=== PATIENT | male | born 1985 | race Caucasian/White ===

== ENCOUNTER 2017-01-26 18:18 | Inpatient (IN) | payer MEDICAID ==
[~2017-01-26] VITALS: Ht 182.9 cm; Wt 61.5 kg
[2017-01-26 18:25] VITALS: BP 118/81; PULSE 107; RESP 16; O2SAT 99
[2017-01-26 19:24] LABS: BASOPHILS % (AUTO) 0.1 % (0-3); EOSINOPHILS % (AUTO) 0.4 % (0-5); MONOCYTES % (AUTO) 5.8 % (4-12); Mean Corpuscular Hemoglobin 27.4 pg (27.0-35.0); Mean Corpuscular Volume 81.9 fL (81-100); NEUTROPHILS % (AUTO) 85.3 % (40-74); Platelet Count 472 bil/L (150-400)
--- NOTE | 2017-01-26 20:36 | ED.REPORT ---
HPI-General Illness Date of Service Jan 26, 2017 ED Provider: Dr. Rhys Tubbs MD A 31 year old male with a history of diabetes mellitus (previous DKA admission x5) presents to the ED complaining of hematuria that began 4 days ago. Patient was seen by Dr. Staton this afternoon and CT revealed L. pyelonephritis and a complex perinephric collection consistent with a large abscess. The patient's hematuria has been constant since initial onset. Recent associated symptoms include diffuse abdominal pain and left flank pain. He last ate at 0900 this morning. Nursing Notes Stated Complaint: CT RESULTS/KIDNEY ABCESS/SENT FROM DR STATON Chief Complaint: Male Abdominal Pain Nursing Notes Reviewed: Yes Allergies: Coded Allergies: codeine (Verified Allergy, Severe, 01/26/17) Penicillins (Verified Allergy, Mild, THROAT EDEMA, 01/26/17) Scheduled Insulin Glargine (Lantus U100 Insulin Vial) 100 Unit/Ml Vial 38 UNIT SUBQ HS Sertraline HCl (Zoloft) 50 Mg Tablet 75 MG PO DAILY Scheduled PRN Acetaminophen (Acetaminophen) 325 Mg Tablet 500 MG PO Q4H PRN PRN For Fever Calcium Carbonate (Tums) 500 Mg Tab.chew 500-1,000 MG PO PRN PRN PRN heartburn Miscellaneous Medications Insulin Lispro (HumaLOG U100 Insulin Pen) 100 Unit/1 Ml Insuln.pen 1 UNIT SUBQ General Time Seen by MD: 20:36 Chief Complaint Abdominal pain Hx Obtained From: Patient Arrived By: Walk-in Sudden in Onset?: No Onset Occurred: 4 days ago Symptom Duration: Since onset Location: : Abdomen Quality: Painful Radiation: : Does not radiate Severity: Current: Moderate Severity: Maximum: Moderate Associated with: Reports: Abdominal pain Additional Notes: Hematuria Flank pain Pertinent Negative: Pt denies other symptoms Recent Healthcare: No recent hospitalization, Recent doctor visit Past Medical History Past Medical History 1. Diabetes mellitus type II (previous DKA admissions x5) 2. Cleft lip and palate surgery (x3) 3. Dental malocclusion 4. Bilateral laryngotomy for chronic ear infections 5. Developmental delay Past Surgical History Palate surgery (x3) Bilateral laryngotomy for chronic ear infections Social History Other Social History: Good social support, Local resident Ambulatory Status Independent Review of Systems Full Review of Systems GI: Reports: Abdominal pain Male: Reports Flank pain (Left), Reports Hematuria Complete sys rev & neg: except as marked. Physical Exam Vital Signs Vital Signs Date Time Temp Pulse Resp B/P Pulse Ox O2 Delivery O2 Flow Rate FiO2 01/26/17 18:25 37.2 107 16 118/81 99 Room Air Initial VS: Reviewed Neck: Supple, Non-tender, Full range of motion Extremities: Vascular intact, Neuro intact, No swelling, No tenderness Skin: Warm, Dry, No cyanosis Neurologic: Alert, Oriented, Nonfocal Psychiatric: Mood/affect normal, Behavior normal, Normal thought content General/Constitutional: Awake, Alert Appearance / Presentation: Positive: Frail, Pale Head / Eyes: Atraumatic, Normocephalic, PERRL Respiratory / Chest: Atraumatic, Breath sounds NL, Breath sounds = bilat, No respiratory distress Cardiovascular: Heart rate NL, Regular rhythm, Heart sounds NL Abdomen: Atraumatic, Soft Back: Atraumatic Flank / Spine / Paraspinal: Positive: Flank tender L BACK: CVA tenderness present Interpretation & Diagnostics Lab Results Interpretation Result Diagram: 01/27/17 0350 01/27/17 0350 Test 01/26/17 19:17 Lactic Acid Level 1.0mmol/L (0.4-2.0) Total Bilirubin 0.2mg/dL (0.0-1.2) Aspartate Amino Transf (AST/SGOT) 6U/L (0-50) Alanine Aminotransferase (ALT/SGPT) 5U/L (0-44) Alkaline Phosphatase 100U/L (25-150) Total Protein 7.7g/dL (6.4-8.4) Albumin 3.3g/dL (3.4-5.0) Hold Walls Top Tube Received (Received) CT Abd / Pelvis Interpretation IMPRESSION: 1. Left pyelonephritis and a complex perinephric collection consistent with perinephric abscess measuring 2.4 x 5.8 x 4.2 cm. 2. Mild concentric thickening of the urinary bladder consistent with cystitis. Dictated by: Gurpreet De La Garza M.D. on 01/26/2017 at 12:32 Approved by: Gurpreet De La Garza M.D. on 01/26/2017 at 12:56 ADDENDUM: The doctor's office had received the result. Dictated by: Gurpreet De La Garza M.D. on 01/26/2017 at 15:55 Study type: Abdominal CT IV contrast, Abdom CT oral contrast Interpretation / Wet Read by: Interpret - Radiologist Re-Eval/Medical Decision Med Decision/Clinical Course Will initiate broad-spectrum antibiotic coverage with cefepime and vancomycin. A staph aureus abscess seems unlikely but I suppose enterococcus could contribute. We will narrow the spectrum when blood and urine cultures are available. Perhaps her urine cultures at [facility]. Either way surgical intervention and most likely interventional radiology will need to be involved as well. Fluid resuscitation and ongoing diabetic treatment. Time of Eval: 21:27 Re-Evaluation/Progress Note: Pain is still present. He is informed of the plan to admit. Pt understands and agrees with the treatment plan dto admit. Consultation #1: Referral / Consult Name: Tamica Garrett MD Consulted With: Urology Call Returned at: 20:56 Harp Action Assembler: Will see patient, Agrees with eval, Agrees with plan Note: Will see the patient tomorrow. Consultation #2: Referral / Consult Name: Ericka Serrano DO Consulted With: Hospitalist Call Returned at: 21:20 Harp Action Assembler: Will see patient, Agrees with eval, Agrees with plan, Accepts admit Counseled Regarding: Diagnosis, Lab results, Need for admission Discharge & Departure Primary Impression: Perinephric abscess Additional Impressions: Leukocytosis Leukocytosis type: unspecified Qualified Code: D72.829 - Elevated white blood cell count, unspecified Hyperglycemia Pyelonephritis Disposition: ADMITTED TO HOSPITAL Discharge Condition All VS Reviewed: Yes Condition: Stable Referrals: Cullen Britt DO (PCP) Leif Castañeda MD (Family) Natalia Attestation Portions of this note were transcribed by Katia Rubio. I, Dr. Tubbs personally performed the history, physical exam and medical decision-making; I reviewed and confirmed the accuracy of the information in the transcribed note. Signed by: Natalia Jiménez, 01/26/17 6194. copies to: Leif Castañeda MD; Cullen Britt Todd P DO Jan 26, 2017 20:36 KATIA RUBIO Jan 26, 2017 20:43 Dictated by: Gurpreet De La Garza M.D. on 01/26/2017 at 12:32 Approved by: Gurpreet De La Garza M.D. on 01/26/2017 at 12:56 ADDENDUM: The doctor's office had received the result. Dictated by: Gurpreet De La Garza M.D. on 01/26/2017 at 15:55 Study type: Abdominal CT IV contrast, Abdom CT oral contrast Interpretation / Wet Read by: Interpret - Radiologist Re-Eval/Medical Decision Time of Eval: 21:27 Re-Evaluation/Progress Note: Pain is still present. He is informed of the plan to admit. Pt understands and agrees with the treatment plan dto admit. Consultation #1: Referral / Consult Name: Tamica Garrett MD Consulted With: Urology Call Returned at: 20:56 Harp Action Assembler: Will see patient, Agrees with eval, Agrees with plan Note: Will see the patient tomorrow. Consultation #2: Referral / Consult Name: Ericka Serrano DO Consulted With: Hospitalist Call Returned at: 21:20 Harp Action Assembler: Will see patient, Agrees with eval, Agrees with plan, Accepts admit Counseled Regarding: Diagnosis, Lab results, Need for admission Discharge & Departure Primary Impression: Perinephric abscess Additional Impressions: Leukocytosis Leukocytosis type: unspecified Qualified Code: D72.829 - Elevated white blood cell count, unspecified Hyperglycemia Pyelonephritis Disposition: ADMITTED TO HOSPITAL Discharge Condition All VS Reviewed: Yes Condition: Stable Referrals: Cullen Britt DO (PCP) Leif Castañeda MD (Family) Natalia Attestation Portions of this note were transcribed by Katia Rubio. I, Dr. Tubbs personally performed the history, physical exam and medical decision-making; I reviewed and confirmed the accuracy of the information in the transcribed note. Signed by: Natalia Jiménez, 01/26/17 2224. copies to: Leif Castañeda MD; Cullen Britt Todd P DO Jan 26, 2017 20:36 KATIA RUBIO Jan 26, 2017 20:43
[2017-01-26] MEDS ORDERED: Vancomycin Inj 1,250 MG in 0.9% Sodium Chloride 250 ML IV ONE (20:40)
[2017-01-26] MEDS ORDERED: Cefepime Inj 2,000 MG in Dextrose 5% Minibag Plus 100 ML IV ONE (20:40)
[2017-01-26] MEDS ORDERED: 0.9% Sodium Chloride 1,000 ML IV ONE ×2 (20:40)
[2017-01-26] MEDS ORDERED: fentaNYL-PF 50 mCg/mL 2 mL Inj IVPUSH PRN (21:05)
[2017-01-26] MEDS ORDERED: 0.9% Sodium Chloride 1,000 ML IV SCH (22:56)
[2017-01-26] MEDS ORDERED: Ondansetron 2 mg/mL 2 mL Inj IVPUSH PRN (23:00)
[2017-01-26] MEDS ORDERED: Vancomycin Inj 750 MG in IV Premix 1 EACH IV ONE (23:00)
[2017-01-26] MEDS ORDERED: Alum-Mag Hydrox-Simeth 30 mL Suspension PO PRN (23:00)
[2017-01-26] MEDS: HYDROmorphone 0.5 mg/0.5 mL iSecure Syringe IVPUSH PRN (23:03)
[2017-01-26 23:14] VITALS: BP 122/78; PULSE 88; RESP 18; O2SAT 99
[2017-01-26 23:29] VITALS: BP 120/64; PULSE 88; RESP 16; O2SAT 98
[2017-01-26 23:34] VITALS: PULSE 106
[2017-01-26 23:37] VITALS: BP 142/90; PULSE 106; RESP 17; O2SAT 99
[2017-01-27] VITALS (7 sets, daily range): BP systolic 120–150; BP diastolic 76–104; PULSE 102–106; RESP 15–21; O2SAT 96–98
[2017-01-27 00:04] LABS: APPEARANCE,URINE CLEAR (CLEAR,HAZY); COLOR,URINE YELLOW (YELLOW); OCCULT BLOOD,URINE LARGE (NEGATIVE); PH,URINE 5.5 (5.0-8.0); UROBILINOGEN,URINE NORMAL (NORMAL)
[2017-01-27] MEDS ORDERED: CALC500T9 PO (00:16)
[2017-01-27] MEDS ORDERED: INSU100V7 SUBQ (00:16)
[2017-01-27] MEDS ORDERED: SERT50TA PO (00:16)
[2017-01-27] MEDS ORDERED: ACET325T51 PO (00:16)
[2017-01-27] MEDS ORDERED: INSU100I18 SUBQ (00:16)
--- NOTE | 2017-01-27 00:16 | PCM.HPMED ---
Subjective Date of Service Jan 27, 2017 Primary Provider: Admitting Physician: Ericka Serrano DO Primary Care Physician: Cullen Britt DO Attending Physician: Ericka Serrano DO Admit Status: From the Emergency Department Chief Complaint: abdominal pain History of Present Illness: 31yoM with past medical history of tobacco dependence, depression and diabetes admitted with sepsis secondary to a perinephric abscess. Patient states that he found blood in his urine 6 days prior to admission. He went to a friend's house and she looked at his urine and advised to go the ED. CT scan was performed and as per patient is was not consisted with pyelonephritis or nephrolithiasis. He was discharge and advised to be seen in follow up at the urology clinic. 01/26 he was seen in followup and was found to have a perinephric abscess on CT. Patient endorses left sided 10/10 flank pain radiating to the left abdomen. He endorses dyspnea related to painful inspiration and has not been able to sleep over the past 4 days due to the intense pain. Patient has not history of pyelonephritis or nephrolithiasis. Review of Systems: complete review of systems obtained. 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 Bilateral laryngotomy for chronic ear infections Developmental delay Social History Hx Alcohol Use: No (very rare ) Hx Substance Use: Yes (rec smoke) Hx Tobacco Use: Yes Exam Vital Signs Vital Sign - Last Date Time Temp Pulse Resp B/P Pulse Ox O2 Delivery O2 Flow Rate FiO2 01/26/17 23:37 37.2 106 17 142/90 99 Room Air Intake and Output 01/26/17 01/26/17 01/27/17 Cumulative From/Thru 14:59 22:59 06:59 01/26/17 18:25 - 01/26/17 23:37 Intake Total 2250 ml 100 ml 2350 ml Balance 2250 ml 100 ml 2350 ml Intake IV Total 2250 ml 100 ml 2350 ml Exam General: A&O, mild distress, well-developed, well-nourished, appropriately interactive Eyes: PERRLA, EOMI, anicteric sclera, mildly injected conjunctiva HENT: Normocephalic, atraumatic. Moist mucous membranes Neck: Supple with full range of motion. No jugular venous distension. No bruits. No thyromegaly. Cardiovascular: tachy rate and reg rhythm with no murmurs, rubs, or gallops appreciated Pulmonary: clear to auscultation bilateral, Normal respiratory effort with no use of accessory muscles. Abdomen: Bowel tones present. Soft, tender left mid abd, left cva tenderness, nondistended. No hepatosplenomegaly or masses appreciated. : no jones in place Extremities: No clubbing, cyanosis, edema, or lymphadenopathy appreciated. Skin: Normal temperature, turgor, and texture; no rash, ulcers, or subcutaneous nodules appreciated. Neurological: Nonfocal neurologic exam, no tremors noted, able to move all extremities spontaneously Psychiatric: Normal mood and affect. Alert and oriented to person, place, and time. MSK: no joint erythema / edema noted on exam Lymph: no cervical or supraclavicular lymphadenopathy Lab and Diagnostics Result Diagram: 01/26/17191601/26/171916 X-Rays, CTs and MRIs Patient Name: LESA SANDERS MR#: [id number] Location: [facility] Ordering Phys: Marjorie Staton MD Date of Service: 01/26/17 1040 PROCEDURE: CT ABDOMEN AND PELVIS WITH CONTRAST ([id number]) INDICATIONS: HEMATURIA TECHNIQUE: After the administration of intravenous contrast, 5 mm thick sections acquired from the diaphragm to the symphysis. 5 mm coronal and sagittal reformats were acquired. For radiation dose reduction, the following was used: automated exposure control, adjustment of mA and/or kV according to patient size. COMPARISON: Outside Film, CT, CT ABD PELVIS WO CON, 01/20/2017, 16:23. FINDINGS: Image quality: Excellent. ABDOMEN: Lung bases: Lung bases are clear. Heart size is normal. Solid organs: There is a triangular shaped hypoenhancement with associated focal cortical irregularity in the posterior cortex of the left kidney. There is complex perinephric fluid collection around inferior pole of the left kidney measuring 2.4 cm anterior-posterior x 5.8 cm transverse x 4.2 cephalocaudal, which is increased compared to 01/20/2017. The perinephric fluid collection demonstrates subtle peripheral enhancement and internal septations. The CT findings are consistent with pyelonephritis and interval development of a perinephric abscess. The right kidney is normal in size and enhancement. No hydronephrosis bilaterally. Ureters are normal in caliber. Liver and spleen are normal in size and enhancement. Gallbladder is normal. Biliary system is non dilated. Pancreas enhances normally. No adrenal nodules. Peritoneum and bowel: Bowel loops demonstrate normal wall thickness and caliber. No free fluid or air. Nodes and vessels: No retroperitoneal or mesenteric adenopathy by size criteria. Aorta and inferior vena cava are normal in size. Miscellaneous: No ventral hernias. PELVIS: Genitourinary: There is mild concentric bladder wall thickening. Miscellaneous: No inguinal hernias or adenopathy. Bones: No suspicious bony lesions. No vertebral body compression fractures. There are multiple Schmorl's nodes in lower thoracic and lumbar spine. IMPRESSION: 1. Left pyelonephritis and a complex perinephric collection consistent with perinephric abscess measuring 2.4 x 5.8 x 4.2 cm. 2. Mild concentric thickening of the urinary bladder consistent with cystitis. Dictated by: Gurpreet De La Garza M.D. on 01/26/2017 at 12:32 Approved by: Gurpreet De La Garza M.D. on 01/26/2017 at 12:56 ADDENDUM This report includes an Addendum and supersedes previous reports for this exam. PROCEDURE: CT ABDOMEN AND PELVIS WITH CONTRAST ([id number]) INDICATIONS: HEMATURIA TECHNIQUE: After the administration of intravenous contrast, 5 mm thick sections acquired from the diaphragm to the symphysis. 5 mm coronal and sagittal reformats were acquired. For radiation dose reduction, the following was used: automated exposure control, adjustment of mA and/or kV according to patient size. COMPARISON: Outside Film, CT, CT ABD PELVIS WO CON, 01/20/2017, 16:23. FINDINGS: Image quality: Excellent. ABDOMEN: Lung bases: Lung bases are clear. Heart size is normal. Solid organs: There is a triangular shaped hypoenhancement with associated focal cortical irregularity in the posterior cortex of the left kidney. There is complex perinephric fluid collection around inferior pole of the left kidney measuring 2.4 cm anterior-posterior x 5.8 cm transverse x 4.2 cephalocaudal, which is increased compared to 01/20/2017. The perinephric fluid collection demonstrates subtle peripheral enhancement and internal septations. The CT findings are consistent with pyelonephritis and interval development of a perinephric abscess. The right kidney is normal in size and enhancement. No hydronephrosis bilaterally. Ureters are normal in caliber. Liver and spleen are normal in size and enhancement. Gallbladder is normal. Biliary system is non dilated. Pancreas enhances normally. No adrenal nodules. Peritoneum and bowel: Bowel loops demonstrate normal wall thickness and caliber. No free fluid or air. Nodes and vessels: No retroperitoneal or mesenteric adenopathy by size criteria. Aorta and inferior vena cava are normal in size. Miscellaneous: No ventral hernias. PELVIS: Genitourinary: There is mild concentric bladder wall thickening. Miscellaneous: No inguinal hernias or adenopathy. Bones: No suspicious bony lesions. No vertebral body compression fractures. There are multiple Schmorl's nodes in lower thoracic and lumbar spine. IMPRESSION: 1. Left pyelonephritis and a complex perinephric collection consistent with perinephric abscess measuring 2.4 x 5.8 x 4.2 cm. 2. Mild concentric thickening of the urinary bladder consistent with cystitis. Dictated by: Gurpreet De La Garza M.D. on 01/26/2017 at 12:32 Approved by: Gurpreet De La Garza M.D. on 01/26/2017 at 12:56 ADDENDUM: The doctor's office had received the result. Dictated by: Gurpreet De La Garza M.D. on 01/26/2017 at 15:55 Approved by: Gurpreet De La Garza M.D. on 01/26/2017 at 15:57 Assessment & Plan 31yoM with past medical history of tobacco dependence, depression and diabetes admitted with sepsis secondary to a perinephric abscess. Sepsis, acute, POA -WBC>12, HR>90 -secondary perinephric abscess -treatment as below Perinephric abscess -CT scan with complex abscess as above -cefepime and vancomycin started in ED, continue, pharmacy to dose vancomycin -Urology consulted prior to admission, discuss in am, likely will require surgical intervention given complex abscess -ID consulted via CPOE, notify in am -pain management with oxycodone / hydromorphone -acetaminophen PRN -NPO -mIVF Diabetes Type 2, chronic -medium regular correction SSI -glargine normal dose 38qHS, reduce to 15qhs while npo Depression -continue home medication Pain Evaluation: Pain not Controlled GI Prophylaxis: Not indicated VTE Prophylaxis: Sub-Q Heparin (Unfractionated), SCDs (SCDs until after procedure then transition to heparin subq for DVT prophylaxis) Resuscitation Status: CPR: Attempt Resuscitation Ericka Serrano DO Jan 27, 2017 00:16
[2017-01-27] MEDS ORDERED: HYDROmorphone 0.5 mg/0.5 mL iSecure Syringe IVPUSH PRN (00:20)
[2017-01-27] MEDS: Sodium Chloride LOK Flush 10 mL Syringe IVFLUSH SCH ×3 (00:20→16:30)
--- NOTE | 2017-01-27 00:35 | NUR ---
admit note pt to floor able to stand to weigh and transfer to bed, pt a little unsteady on feet r/t pain on his left side. BG 141 NS at 100cc/hr pt receiving IV ABXs. 0.5mg IV dilaudid given and MD into see pt and ordered another 0.5mg IV dilaudid gave with good results, tele ST, orientated pt to call light, room and bed, UA sent.
[2017-01-27] MEDS: 0.9% Sodium Chloride 1,000 ML IV SCH ×3 (00:41→20:20)
[2017-01-27] MEDS: Insulin GLARgine 100 Unit/mL Syringe SUBQ SCH ×2 (00:50→22:02)
[2017-01-27] MEDS ORDERED: Glucose 40% Oral Gel 15 Gm Tube PO PRN ×2 (00:50→11:00)
[2017-01-27] MEDS ORDERED: Polyethylene Glycol (PEG) 17 Gm Powder PO PRN ×2 (00:55→01:40)
[2017-01-27] MEDS ORDERED: Dextrose 10% 250 ML IV PRN (01:00)
[2017-01-27] MEDS: Vancomycin Dose per Pharmacist XX SCH ×2 (01:23→08:30)
--- NOTE | 2017-01-27 01:29 | PCM.CONPHA ---
Subjective Date of Service: Jan 27, 2017 Requesting Provider: Ericka Serrano DO abdominal pain Reason for Pharmacy Consult: Vancomycin Dosing Objective Vital Signs Date Time Temp Pulse Resp B/P Pulse Ox O2 Delivery O2 Flow Rate FiO2 01/26/17 23:37 37.2 106 17 142/90 99 Room Air 01/26/17 23:34 106 01/26/17 23:29 37.0 88 16 120/64 98 Room Air 01/26/17 23:14 37.1 88 18 122/78 99 Room Air 01/26/17 18:25 37.2 107 16 118/81 99 Room Air Intake and Output 01/25/17 01/26/17 01/27/17 00:00 00:00 00:00 Intake Total 2350 ml Balance 2350 ml Weight (Kilograms): 59.200 Height (Feet): 6 Height (Inches): 0.00 Test 01/26/17 19:17 01/26/17 23:31 White Blood Count 16.3th/mm3 (3.8-10.1) Red Blood Count 5.07mil/mm3 (4.40-5.80) Hemoglobin 13.9g/dL (13.8-17.2) Hematocrit 41.5% (41.0-50.0) Mean Corpuscular Volume 81.9fL (81-100) Mean Corpuscular Hemoglobin 27.4pg (27.0-35.0) Mean Corpuscular Hemoglobin Concent 33.5% (32.0-37.0) Red Cell Distribution Width 14.7% (12.3-15.4) Platelet Count 472bil/L (150-400) Neutrophils (%) (Auto) 85.3% (40-74) Lymphocytes (%) (Auto) 7.7% (14-46) Monocytes (%) (Auto) 5.8% (4-12) Eosinophils (%) (Auto) 0.4% (0-5) Basophils (%) (Auto) 0.1% (0-3) Sodium Level 134mEq/L (134-144) Potassium Level 4.2mEq/L (3.5-5.2) Chloride Level 90mEq/L (97-108) Carbon Dioxide Level 23mmol/L (18-29) Blood Urea Nitrogen 17mg/dL (6-20) Creatinine 0.80mg/dL (0.76-1.27) Estimat Glomerular Filtration Rate 120mL/min (>59) Glucose Level 269mg/dL (60-99) Lactic Acid Level 1.0mmol/L (0.4-2.0) Calcium Level 9.8mg/dL (8.5-10.1) Total Bilirubin 0.2mg/dL (0.0-1.2) Aspartate Amino Transf (AST/SGOT) 6U/L (0-50) Alanine Aminotransferase (ALT/SGPT) 5U/L (0-44) Alkaline Phosphatase 100U/L (25-150) Total Protein 7.7g/dL (6.4-8.4) Albumin 3.3g/dL (3.4-5.0) Hold Walls Top Tube Received (Received) Urine Color Yellow (YELLOW) Urine Appearance Clear (CLEAR,HAZY) Urine pH 5.5 (5.0-8.0) Urine Specific [place] 1.025 (1.003-1.035) Urine Protein 100mg/dL (NEG,TRACE) Urine Glucose (UA) 250mg/dL (NEGATIVE) Urine Ketones 40mg/dL (NEGATIVE) Urine Occult Blood Large (NEGATIVE) Urine Nitrite Negative (NEGATIVE) Urine Bilirubin Negative (NEGATIVE) Urine Urobilinogen Normalmg/dL (NORMAL) Urine Leukocyte Esterase Negative (NEGATIVE) Urine RBC 11-50/hpf (0-2) Urine WBC 11-50/hpf (0-5) Urine Epithelial Cells Occasional/hpf (NONE-MOD) Urine Crystals None seen (NONE SEEN) Urine Bacteria Few/hpf (NONE-FEW) Urine Hyaline Casts Occasional/lpf (NONE) Urine Granular Casts None seen (NONE SEEN) Urine Waxy Casts None seen (NONE SEEN) Urine Red Blood Cell Casts None seen (NONE SEEN) Urine White Blood Cell Casts None seen (NONE SEEN) Urine Mucus None seen (None Seen) Urine Trichomonas None seen (NONE SEEN) Urine Yeast None (NONE SEEN) Urinalysis Comment None Urine Culture Reflexed Indicated Assessment/Plan Assessment/Plan A: * Vancomycin dosing by pharmacy for 31 y/o man with sepsis secondary to perinephric abscess * The patient was given a 1250 mg IV vancomycin loading dose in the ED * He is also being started on cefepime * Estimated CrCl for this patient is 112 mL/min (Cockcroft & Gault) * Estimated vancomycin half-life is 7 hours and Vd is 41 liters P: * Start vancomycin 750 mg IV every 8 hours * Target a vancomycin trough range of 15 - 20 mcg/mL * Draw a trough level prior to the fourth dose Thank you. Pharmacy will continue to follow this patient. Jenn Estevez Jan 27, 2017 01:29
[2017-01-27] MEDS ORDERED: Ondansetron 2 mg/mL 2 mL Inj IVPUSH PRN (01:40)
[2017-01-27] MEDS ORDERED: Alum-Mag Hydrox-Simeth 30 mL Suspension PO PRN (01:40)
[2017-01-27] MEDS ORDERED: Insulin Human REGular 300 Unit/3 mL Inj SUBQ SCH (02:30)
[2017-01-27] MEDS: HYDROmorphone 0.5 mg/0.5 mL iSecure Syringe IVPUSH PRN ×8 (04:15→21:57)
[2017-01-27 04:28] LABS: BASOPHILS % (AUTO) 0.1 % (0-3); EOSINOPHILS % (AUTO) 0.2 % (0-5); MONOCYTES % (AUTO) 8.8 % (4-12); Mean Corpuscular Hemoglobin 27.5 pg (27.0-35.0); Mean Corpuscular Volume 82.5 fL (81-100); NEUTROPHILS % (AUTO) 84.3 % (40-74); Platelet Count 408 bil/L (150-400)
[2017-01-27] MEDS: Vancomycin Inj 750 MG in 0.9% Sodium Chloride 250 ML IV SCH ×2 (04:42→15:42)
--- NOTE | 2017-01-27 06:18 | NUR ---
pain pt c/o pain in left "kidney" area, 05/05 0.5mg IV dilaudid given pain 03/05 gave another dose 0.5mg to equal 1mg with good effect. pt resting at this time, NS 100cc/hr and ABX
--- NOTE | 2017-01-27 09:20 | NUR ---
Social Work Note: Screen Note Data& Assessment: EMR reviewed. Vernon Neely is a 31 year old male admitted on 01/26/2017 for pyelonephritis, and hyperglycemia. Pt has [facility] [place] insurance coverage and sees Lorenza Berman DO for primary care. Pt lives in [place] alone and is independent at baseline. Pt is currently a SBA in his room per RN charting. SW to continue to follow for pt needs and MD orders, no discharge needs identified at this time. Plan: Anticipated discharge home via POV when medically ready. SW to continue to follow for pt needs and MD orders, no discharge needs identified at this time. VASILE Schilling
--- NOTE | 2017-01-27 09:41 | CONS ---
[address] [address] CONSULTATION REPORT PATIENT: LESA SANDERS : 1985 MR#: [id number] ADMIT: 01/26/2017 JOB ID: [id number] DATE OF SERVICE: 01/27/2017 REQUESTING PHYSICIAN: I thank Dr. Barajas for this timely consult. REASON FOR CONSULT: Large left perinephric abscess. HISTORY OF PRESENT ILLNESS: The patient is a 31-year-old type 1 diabetic gentleman with some degree of developmental delay. Despite his intellectual handicaps, the patient has, until recently, been able to hold down a job, and has been quite functional. Last Thursday, which would be January 21, the patient went to the emergency department in [place], and was evaluated for hematuria and severe left flank pain, which were new in onset on that day. A CT scan was read as showing no evidence of hydronephrosis or abscess, and he was discharged without antibiotics. He was given a followup appointment with Urology, which occurred yesterday, January 26, to follow up on his hematuria, which continued. During the intervening five or six days, his left flank pain, if anything, got worse, and he had more and more hematuria, and became really completely nonfunctional due to pain primarily. Oddly, he denies any fevers, chills, or sweats. No respiratory or GI complaints of significance either. Yesterday, in the Urology Clinic, a CT was ordered, which showed very clearly a very large and complex left perinephric abscess, and he was sent to the ED and subsequently admitted. ID consultation is requested regarding appropriate management. PAST MEDICAL HISTORY: 1. Type 1 diabetes. 2. Developmental delay. 3. Status post repair of a cleft palate. 4. Depression. SOCIAL HISTORY: The patient does not drink alcohol, but he does smoke both tobacco cigarettes and marijuana. He lives with his family, though he says it is a dysfunctional household. He notes he was recently let go from his job, which he has found very disturbing, apparently because he was in the ED too often and missed days of work. FAMILY HISTORY: Negative for tuberculosis in first-degree relatives. REVIEW OF SYSTEMS: The patient has no significant headache or visual complaint. No sore throat. No cough or shortness of breath. He has severe left flank pain, which even with any motion at all precipitates really a pain crisis. This is associated with gross hematuria, but no dysuria. No significant cough, shortness of breath, or chest pain. No nausea, vomiting, or diarrhea. No pain in the extremities. Remainder of the review of systems is negative. PHYSICAL EXAMINATION: Reveals a young man who is quite distraught at his pain and life situation. At times, he appears to be in agony, and at times is almost tearful. He is; however, lucid, and able to give a history. Temperature 37.2. He has been afebrile during his 24 hours here. Pulse 104, respiratory rate 20, blood pressure 150/100, saturating well on room air. Head without trauma. Eyes without conjunctivitis. Oral cavity negative. Neck without adenopathy. Lungs clear. He does, on his face, have evidence of a successful cleft palate repair. Cardiac tones: Regular rate and rhythm. Abdomen is soft, nontender, except for severe left flank tenderness. No suprapubic abnormalities. No synovitis. No skin rash. No peripheral edema. Neurologically, he is intact. No other notable abnormalities on physical. LABORATORIES: Labs include white count 16 yesterday, 19 today, with left shift. Platelets elevated 408. Creatinine 0.53. LFTs normal. Urinalysis: 11-50 white cells. Urine culture is pending. Blood culture is also pending. We have contacted [facility] in [place] and asked them to send over any and all culture results from his visit there six days ago, and we await these results. The computer lab assistant I spoke to said she was too busy to look at up and tell me orally on the phone, but she would be faxing it soon, and we await those results. RADIOGRAPHIC DATA: We reviewed the CT images on the computer with the Urology attending, who is also consulting on this case. They show a very large, 6 cm at least, multiloculated abscess, which is posterior and inferior to the left kidney. This does appear to be in a location that would be amenable to IR drainage, though the loculated nature of this fluid collection may make this more difficult, but certainly worth attempting. IMPRESSION: This is a complex case of a left perinephric abscess with hematuria in a young man with underlying diabetes mellitus and developmental delay. Just as I am dictating this impression, I was handed the labs from [facility] from last week. They show that he had a considerable hematuria, but absolutely no white cells in his urine last week, so on that basis, they did not do a urine culture, nor any blood cultures as he had no fever. This further complicates our workup of this patient. As of this point, we have nothing to go on. It is also notable on that urine, the glucose was greater than 1000, suggesting very poor diabetes control. This case was discussed with the Medicine team, as well as Urology at the bedside. We are in agreement that a percutaneous drainage of this perinephric abscesses as soon as possible is indicated. This drainage will serve as a diagnostic and therapeutic maneuver hopefully. One difficult aspect of this case is the fact we have no cultures whatsoever to go on, and the longer we give him empiric antibiotics, the less likely we are to recover an organism and be able to more narrowly direct our antimicrobial therapy. RECOMMENDATIONS: 1. Percutaneous drainage with cultures and Gram stain as soon as possible. 2. The patient is currently receiving vancomycin and cefepime. These are reasonable, but I would check a MRSA screen today, and if that is negative, drop the vancomycin, as it is likely to contribute only toxicity. The only significant coverage we get from the vancomycin at this point is Enterococcus, as MRSA would be quite surprising in this location. Will continue to follow this complex case with you.
[2017-01-27] MEDS: Cefepime Inj 2,000 MG in Dextrose 5% Minibag Plus 100 ML IV SCH ×2 (10:04→17:20)
--- NOTE | 2017-01-27 10:22 | PCM.PNMED ---
Subjective Date of Service Jan 27, 2017 Subjective The patient was admitted last night for sepsis secondary to a left perinephric abscess. No acute event overnight. Vital signs stable. Today, he has had many pain issue and reports moderate pain relief with the Dilaudid IV. He admits to throat swelling on Codeine and itching rash with Vicodin in the past. He has not been using any other pain medications. Unknown history of drug use. Patient denies any other symptoms. Exam Vital Signs Vital Sign - Last Date Time Temp Pulse Resp B/P Pulse Ox O2 Delivery O2 Flow Rate FiO2 01/27/17 03:56 37.2 104 20 150/104 98 Room Air Intake and Output 01/26/17 01/26/17 01/27/17 Cumulative From/Thru 15:00 23:00 07:00 01/26/17 18:25 - 01/27/17 06:26 Intake Total 2250 ml 1085 ml 3335 ml Output Total 450 ml 450 ml Balance 2250 ml 635 ml 2885 ml Intake Oral 0 ml 0 ml IV Total 2250 ml 1085 ml 3335 ml Output Urine Total 450 ml 450 ml # Voids 2 2 Exam General: A&O, mild distress, well-developed, well-nourished, appropriately interactive Eyes: PERRLA, EOMI, anicteric sclera, mildly injected conjunctiva HENT: Normocephalic, atraumatic. Moist mucous membranes Neck: Supple with full range of motion. No jugular venous distension. No bruits. No thyromegaly. Cardiovascular: tachy rate and reg rhythm with no murmurs, rubs, or gallops appreciated Pulmonary: clear to auscultation bilateral, Normal respiratory effort with no use of accessory muscles. Abdomen: Bowel tones present. Soft, nondistended severe tenderness in the left mid abd, severe left cva tenderness. Voluntary guarding. No rebound tenderness. No hepatosplenomegaly or masses appreciated. Extremities: No clubbing, cyanosis, edema, or lymphadenopathy appreciated. Skin: Normal temperature, turgor, and texture; no rash, ulcers, or subcutaneous nodules appreciated. Neurological: Nonfocal neurologic exam, no tremors noted, able to move all extremities spontaneously Psychiatric: Flat affect and labile mood, tearful at time. Alert and oriented to person, place, and time. IVs and Medications Medications Reviewed: Medications were reviewed in detail Lab and Diagnostics Result Diagram: 01/27/17 0350 01/27/17 035 X-Rays, CTs and MRIs PROCEDURE: CT ABDOMEN AND PELVIS WITH CONTRAST IMPRESSION: 1. Left pyelonephritis and a complex perinephric collection consistent with perinephric abscess measuring 2.4 x 5.8 x 4.2 cm. 2. Mild concentric thickening of the urinary bladder consistent with cystitis. Dictated by: Gurpreet De La Garza M.D. on 01/26/2017 at 12:32 Assessment & Plan 31yo male with past medical history of tobacco dependence, depression, and diabetes admitted with sepsis secondary to a perinephric abscess. Sepsis, acute, POA and improving -Patient presente with WBC>12, HR>90 on admission. -secondary perinephric abscess -treatment as below. Perinephric abscess, POA and improving -CT scan with complex abscess as above -continue, pharmacy to dose vancomycin -Urology consulted and recommended a percutaneous drainage by IR. However, given the complexity of the abscess, the radiologist recommend a needle aspiration for decompression and culture today. Will consider percutaneous drainage tomorrow -cefepime and vancomycin started in ED. Appreciate Dr. Pulido input. Will continue with Cefipime and Vanco at this time. -MRSA screening pending and will likely D/C Vanco if it is negative. -Blood and urine cultures pending. -pain management with hydromorphone Q2H PRN and Acetaminophen PRN. Patient reports severe reaction to codeine. -Continue IVF. Diabetes Type 2, chronic, POA and uncontrolled. -medium regular correction SSI -glargine normal dose 38qHS, reduce to 15qhs while npo Depression, POA. -continue home medication Patient was admitted for >2 midnights under inpatient status due to severity and complexity of illness Full resuscitation Pain Evaluation: Adequate Pain Control GI Prophylaxis: Not indicated VTE Prophylaxis: Sub-Q Heparin (Unfractionated), SCDs (SCDs until after procedure then transition to heparin subq for DVT prophylaxis) Resuscitation Status: CPR: Attempt Resuscitation Attending Statement Patient seen and examined with house staff. Agree with all attached documentation. Sai Barajas DO Jan 27, 2017 10:22 Frantz Guadarrama MD Jan 27, 2017 13:37 1. Left pyelonephritis and a complex perinephric collection consistent with perinephric abscess measuring 2.4 x 5.8 x 4.2 cm. 2. Mild concentric thickening of the urinary bladder consistent with cystitis. Dictated by: Gurpreet De La Garza M.D. on 01/26/2017 at 12:32 Approved by: Gurpreet De La Garza M.D. on 01/26/2017 at 12:56 ADDENDUM This report includes an Addendum and supersedes previous reports for this exam. PROCEDURE: CT ABDOMEN AND PELVIS WITH CONTRAST ([id number]) INDICATIONS: HEMATURIA TECHNIQUE: After the administration of intravenous contrast, 5 mm thick sections acquired from the diaphragm to the symphysis. 5 mm coronal and sagittal reformats were acquired. For radiation dose reduction, the following was used: automated exposure control, adjustment of mA and/or kV according to patient size. COMPARISON: Outside Film, CT, CT ABD PELVIS WO CON, 01/20/2017, 16:23. FINDINGS: Image quality: Excellent. ABDOMEN: Lung bases: Lung bases are clear. Heart size is normal. Solid organs: There is a triangular shaped hypoenhancement with associated focal cortical irregularity in the posterior cortex of the left kidney. There is complex perinephric fluid collection around inferior pole of the left kidney measuring 2.4 cm anterior-posterior x 5.8 cm transverse x 4.2 cephalocaudal, which is increased compared to 01/20/2017. The perinephric fluid collection demonstrates subtle peripheral enhancement and internal septations. The CT findings are consistent with pyelonephritis and interval development of a perinephric abscess. The right kidney is normal in size and enhancement. No hydronephrosis bilaterally. Ureters are normal in caliber. Liver and spleen are normal in size and enhancement. Gallbladder is normal. Biliary system is non dilated. Pancreas enhances normally. No adrenal nodules. Peritoneum and bowel: Bowel loops demonstrate normal wall thickness and caliber. No free fluid or air. Nodes and vessels: No retroperitoneal or mesenteric adenopathy by size criteria. Aorta and inferior vena cava are normal in size. Miscellaneous: No ventral hernias. PELVIS: Genitourinary: There is mild concentric bladder wall thickening. Miscellaneous: No inguinal hernias or adenopathy. Bones: No suspicious bony lesions. No vertebral body compression fractures. There are multiple Schmorl's nodes in lower thoracic and lumbar spine. IMPRESSION: 1. Left pyelonephritis and a complex perinephric collection consistent with perinephric abscess measuring 2.4 x 5.8 x 4.2 cm. 2. Mild concentric thickening of the urinary bladder consistent with cystitis. Dictated by: Gurpreet De La Garza M.D. on 01/26/2017 at 12:32 Approved by: Gurpreet De La Garza M.D. on 01/26/2017 at 12:56 ADDENDUM: The doctor's office had received the result. Dictated by: Gurpreet De La Garza M.D. on 01/26/2017 at 15:55 Approved by: Gurpreet De La Garza M.D. on 01/26/2017 at 15:57 Assessment & Plan 31yoM with past medical history of tobacco dependence, depression and diabetes admitted with sepsis secondary to a perinephric abscess. Sepsis, acute, POA -WBC>12, HR>90 -secondary perinephric abscess -treatment as below Perinephric abscess -CT scan with complex abscess as above -continue, pharmacy to dose vancomycin -Urology consulted and recommended a percutaneous drainage by IR. However, given the loculation of the abscess, the radiologist recommend a needle aspiration to get some fluid for culture. -cefepime and vancomycin started in ED. Appreciate Dr. Pulido input. Will continue with Cefipime and Vanco at this time. -MRSA screening pending and will likely D/C Vanco if it is negative. -pain management with hydromorphone Q2H PRN. -acetaminophen PRN -NPO -mIVF Diabetes Type 2, chronic -medium regular correction SSI -glargine normal dose 38qHS, reduce to 15qhs while npo Depression -continue home medication Patient was admitted for >2 midnights under inpatient status due to severity and complexity of illness Pain Evaluation: Adequate Pain Control GI Prophylaxis: Not indicated VTE Prophylaxis: Sub-Q Heparin (Unfractionated), SCDs (SCDs until after procedure then transition to heparin subq for DVT prophylaxis) Resuscitation Status: CPR: Attempt Resuscitation Sai Barajas DO Jan 27, 2017 10:22
--- NOTE | 2017-01-27 10:43 | NUR ---
Pain/Insulin At change of shift pt states pain is 9/10, pt Dilauded due at 0845 am, pt refused Oxycodone states he is allergic to codeine. Codeine allergy is documented. Pt states his throat swells within minutes. Repositioned pt. Pt states he will try to make it till 0845. notified. Medication changed to Q 2, instead of Q4. Care continues. Pt states he does not take Humulin R for Diabetes. States he has his own insulin. Pt refusing Humulin R. notified. Pharmacy notified.
[2017-01-27] MEDS: Insulin LISPRO 300 Unit/3 mL Inj SUBQ SCH ×3 (11:33→22:01)
[2017-01-27 12:14] LABS: INR 1.04 ratio
--- NOTE | 2017-01-27 13:19 | PCM.HPSURG ---
Subjective Date of Service: Jan 27, 2017 Referring Provider: Admitting Physician: Frantz Guadarrama MD Primary Care Physician: Cullen Britt DO Attending Physician: Frantz Guadarrama MD Chief Complaint Asked by Dr Barajas for evaluation and treatment recommendations regarding a 31 y /o with IDDM and large perinephric abscess History of Present Illness Pt is a 31 y/o insulin dependent diabetic gentleman admitted 01/26/17 with large Left perinephric abscess. He had been to [facility] 01/20 with c/o L flank/abdominal pain, CT then showed much more subtle findings which were not noted at the time, urine culture was not sent. He was referred for urology for his back pain, CT done outpatient 01/26 led to findings and pt returned to ER at [facility] where he was admitted. Findings included L sided renal and perinephric abscess complex that was large 2.,4 x 5.8 x 4.2 and Loculated in appearance. There is No hydronephosis on this side. Contralateral kidney is orthotopic and normal in appearance. Urinary bladder with some symmetric wall thickening c/w cystitis. Pt with increasing L back/abdominal pain and WBC o 16.3 at admit, 19.1 several hours after admision, normal Lactic Acid with HR in the 80s-100s, normotensive with markedly elevated blood glucose at admission. He remained afebrile and uncomforable, clinically tomy since admission. He has been seen by Dr Pulido with ID and was empirically placed on Vancomycin and Cefotetan. Allergy Allergies: Coded Allergies: codeine (Verified Allergy, Severe, 01/26/17) Penicillins (Verified Allergy, Mild, THROAT EDEMA, 01/26/17) Medications Home medications see med rec Social History Hx Alcohol Use: No (very rare ) Hx Substance Use: Yes (rec smoke) Hx Tobacco Use: Yes PMH HEENT History History of ENT Problems?: Yes HEENT History: Positive for:: Sinus Problem Denies:: Cataracts Dysphagia Glaucoma Cardiovascular History History of Heart Problems?: No Cardiovascular History: Denies:: Congestive Heart Failure Hypertension Respiratory History of Respiratory Problem: Yes Respiratory History: Positive for:: Dyspnea (sometimes) Denies:: Tuberculosis Neurological History Hx Neurologic Problems?: No Gastrointestinal History HX of GI Problems?: Yes Gastrointestinal History: Positive for:: Heartburn (tums sometimes) Genitourinary History Hx of Gu Problems?: No Genitourinary History: Denies: Kidney Stones (abcess on left kidney this admit ) Urinary Tract Infection Female/Male History Reproductive History Male: Denies: Prostate Problems Scrotal Mass Musculoskeletal History Hx Musculoskeletal Problems?: Yes Musculoskeletal History: Positive for:: Back Injury (pt has scoliosos) Denies:: Joint Replacement Musculoskeletal Trauma Psycho Social History Hx of Psycho/Social Problems?: Yes Psycho Social History: Positive for:: Hx Depression (takes zoloft ) Denies:: Anxiety Bipolar Disorder Suicide Attempt Other History Hx Any Other Health Problems?: Yes Other History: Positive for:: Hospitalization (DKA) Denies:: Cancer Thyroid Disease Diabetes: Yes (type 2)Bedside Blood Glucose: 156 Social History Hx Alcohol Use: No (very rare )Hx Substance Use: Yes (rec smoke)Hx Tobacco Use : Yes H&P Surgical Exam Exam General: Alert, Oriented X3, Cooperative, Mild Distress, Other (uncomfortable) Neck: Supple, Other (midline trachea, no scars, no visible goiter) Lungs: Normal Air Movement (some mild tachypnea, shallow breathing, no audible ronchi or wheezes) Heart: Other (Reg rhythm, warm extremities, normal coloration, no JVD supine) Abdomen: Appropriately tender, Guarding, Non-distended (no palpable mas) Extremities: Warm Neuro: Grossly Neurologically Intact (clear speech, symmetric face, some developmental delay difficulty with insignt into condition) Catheters: None Lab & Micro Results: as above Diagnostics: see HPI Assessment & Plan Assessment Insulin Dependent diabetic with L sided pyelonephritis and large perinephric collection which is quite loculated. Markedly advanced since subtle findings of late December CT at outside hospital Stared on broad spectrum antibiotics just 7/3 at admit uncomfortable but thus far hemodynamically tomy Leukocytocis unclear trend given temporal proximity of ER labs to early AM labs 7/4 after start of treatment Urine/blood cultures are pending Have reviewed CT finidngs with radiology. As we have noted collection is quite loculated and would not be easily drained by pigtail at this point due to the extensive loculation. VTE Prophylaxis: Sub-Q Heparin (Unfractionated), SCDs (SCDs until after procedure then transition to heparin subq for DVT prophylaxis) Plan: Radiology will perform CT guided aspiration today for cultures, will withdraw whatever may be removed with aspiration and leave patient drain free for now. Cultures will ideally allow for directed antibiotic therapy Would re image in a few days if indicated as evolution of his process may lead the loculated picture to coalesce into larger collection or collections of fluid which would be more amenable to drainage with pigtail catheter and this may facilitate clearance of his abscess. Will follow with you and make further recommendations where possible please do not hesitate to call with questions. Resuscitation Status: CPR: Attempt Resuscitation Tamica Garrett MD Jan 27, 2017 13:19
[2017-01-27] MEDS ORDERED: Flumazenil 0.1 mg/mL 5 mL Inj IV ONE (13:43)
[2017-01-27] MEDS ORDERED: fentaNYL-PF 50 mCg/mL 2 mL Inj ONE (13:43)
--- NOTE | 2017-01-27 14:02 | NUR ---
IR/Vanco Pt off the floor to IR at approximately 1400. Holding Vanco per IR till pt returns. Care continues.
[2017-01-27] MEDS ORDERED: fentaNYL-PF 50 mCg/mL 2 mL Inj IVPUSH PRN (14:05)
--- NOTE | 2017-01-27 15:41 | DRSVH ---
PROCEDURE: CT-GUIDED ASPIRATION OF RENAL/PELVIC CYST ([id number]) INDICATIONS: APIRATION OF PERINEPHRIC ABCESS COMPARISON: [facility], CT, CT ABD PELVIS W CON, 01/26/2017, 12:07. Technique: Risks and benefits of the procedure were explained to the patient including bleeding and infection. The patient indicated understanding and desire to proceed. The left perinephric multilocul ated fluid collection was localized under CT guidance and the overlying tissues sterilized and infuse d with lidocaine. Under CT guidance an 18 gauge Chiba needle was advanced into the fluid collection a nd 6 cc of thick white pertinent fluid was removed. Patient tolerated procedure well and left the dep artment of radiology in stable condition. IMPRESSION: Successful aspiration of a left perinephric abscess yielding 6 cc of pertinent fluid. Dictated by: Puma Tellez M.D. on 01/27/2017 at 15:31 Approved by: Puma Tellez M.D. on 01/27/2017 at 15:34
--- NOTE | 2017-01-27 18:31 | NUR ---
Pain 2 vials of Dilaudid 1 mg scanned. Did not save. Vials in sharps container. Verified by 2 RNs, Stephany Brennan and this RN prior to discard. Care continues. Addendum: 01/27/17 at 1836 by MARIOLA GARCIA RN Scan did end up saving. Second screen in background.
[2017-01-27] MEDS ORDERED: Vancomycin Inj 750 MG in 0.9% Sodium Chloride 250 ML IV SCH (23:30)
[2017-01-28] MEDS: HYDROmorphone 0.5 mg/0.5 mL iSecure Syringe IVPUSH PRN ×10 (00:46→23:42)
[2017-01-28] MEDS: Cefepime Inj 2,000 MG in Dextrose 5% Minibag Plus 100 ML IV SCH (00:47)
[2017-01-28] MEDS: Sodium Chloride LOK Flush 10 mL Syringe IVFLUSH SCH ×3 (00:47→16:30)
[2017-01-28 02:52] VITALS: BP 146/97; PULSE 109; RESP 16; O2SAT 99
[2017-01-28] MEDS: 0.9% Sodium Chloride 1,000 ML IV SCH ×2 (04:46→17:43)
--- NOTE | 2017-01-28 05:34 | NUR ---
pain pt c/o "kidney" pain 05/05 requests IV dilaudid after pt will state it helped his pain a lot but rate it at a 8/10 each time pt appears comfortable and is sleeping intermittently through out the night
[2017-01-28] MEDS ORDERED: Vancomycin Serum Trough XX ONE (07:00)
[2017-01-28 07:49] LABS: BASOPHILS % (AUTO) 0.1 % (0-3); EOSINOPHILS % (AUTO) 0.3 % (0-5); MONOCYTES % (AUTO) 6.7 % (4-12); Mean Corpuscular Hemoglobin 27.2 pg (27.0-35.0); Mean Corpuscular Volume 82.5 fL (81-100); NEUTROPHILS % (AUTO) 88.8 % (40-74); Platelet Count 419 bil/L (150-400)
[2017-01-28] MEDS: Vancomycin Dose per Pharmacist XX SCH (08:30)
[2017-01-28 08:54] VITALS: BP 134/81; PULSE 109; RESP 16; O2SAT 98
[2017-01-28] MEDS: Insulin LISPRO 300 Unit/3 mL Inj SUBQ SCH ×4 (08:57→22:49)
--- NOTE | 2017-01-28 09:57 | PROG NOTE ---
[address] [address] PROGRESS NOTE PATIENT: LESA SANDERS : 1985 MR#: [id number] ADMIT: 01/26/2017 JOB ID: [id number] DATE: 01/28/2017 REASON FOR FOLLOW UP: Complex large perinephric abscess. INTERVAL HISTORY: Overnight, the patient underwent a percutaneous aspirate of the liver abscess. Because of the multiloculated nature of it that was not felt to be amenable to leaving the drain in place for drainage by IR and so the aspirate was done and the needle was removed. The patient reports he feels little different. He continues to have the severe left-sided flank pain without overt fevers and chills. No nausea, vomiting, or significant shortness of breath. PHYSICAL EXAMINATION: Reveals a gentleman who has been consistently afebrile. Temperature 36.8, pulse 109, respiratory rate 16, blood pressure 134/81. He is saturating well on room air. Examination of the oral cavity is unremarkable. Lungs relatively clear. Cardiac tones without murmur. Left flank pain continues and is quite severe. LABORATORIES: Include a white count which has dropped from 19 to 15,000 today still with left shift. Creatinine is 0.47. Urinalysis 11-50 white cells. Urine culture is negative. The blood cultures negative. The aspirate has still not been read in terms of Gram stain and the cultures being set up. The note from Radiology indicates they got 6 cc of purulent fluid. IMPRESSION: Extensive left perinephric abscess, microbiologic etiology unknown at this point. The patient does not have an indwelling drain and plans to further drain this abscess are pending according to the urology health and safety consultant. RECOMMENDATIONS: 1. Will continue with the current antibiotics which include vancomycin and cefepime. 2. As soon as the MRSA screen of the nares is available if it is negative, I would drop the vancomycin. 3. We await the Gram stain and culture from the perinephric fluid and hopefully can narrow our antibiotics considerably based on the results of that.
[2017-01-28] MEDS: Vancomycin Inj 1,000 MG in IV Premix 1 EACH IV SCH ×2 (10:27→17:44)
--- NOTE | 2017-01-28 13:39 | NUR ---
Pain Pt agitated at shift change. States his pain is out of control. Pt given Dilaudid 1 mg by set up and charger. Pt states pain is at a 9 on reassessment. Pt states his LUQ, LLQ and left flank severe pain. MD notified. Pt states Dilaudid is not touching pain. Care continues.
[2017-01-28] MEDS: Cefepime 2,000 mg/100 mL D5W Minibag Plus IV SCH ×4 (13:43→21:03)
--- NOTE | 2017-01-28 15:00 | PCM.PHAPRO ---
Progress VANCOMYCIN DOSING PER PHARMACY Dose: 750 mg every 8 hrs Trough: 7.6 Blood cultures: no growth x 24 hrs Urine cultures: no growth x 24 hrs SCr: stable Other ABX: Cefepime A/P -Subtherapeutic trough with one dose timing change. Trough still drawn near correct time. -Will increase dose to 1,000mg every 8 hours with trough scheduled for 01/29@0800 -MRSA swab to be ordered per Ashok. Td Aguilar, PharmD Td Aguilar Jan 28, 2017 15:00
--- NOTE | 2017-01-28 15:30 | PCM.PNMED ---
Subjective Date of Service Jan 28, 2017 Subjective Overnight, patient continues to complain of "kidney" pain 10/10 and requests IV dilaudid Q2H that only takes his pain down to 8/10. Otherwise, no other acute event. Today, patient states that he feels a little better, but his pain is still not well controlled. He expresses left-sided back and mid abdomen pain with deep breathing and movement. He denies any nausea, vomiting, fever, chills, or headache. Exam Vital Signs Vital Sign - Last Date Time Temp Pulse Resp B/P Pulse Ox O2 Delivery O2 Flow Rate FiO2 01/28/17 02:52 37.0 109 16 146/97 99 Room Air Intake and Output 01/27/17 01/27/17 01/28/17 Cumulative From/Thru 15:00 23:00 07:00 01/26/17 18:25 - 01/28/17 06:23 Intake Total 0 ml 2358 ml 5693 ml Output Total 1300 ml 1750 ml Balance 0 ml 1058 ml 3943 ml Intake Oral 0 ml 872 ml 872 ml IV Total 1486 ml 4821 ml Output Urine Total 1300 ml 1750 ml # Voids 0 2 Exam General: A&O, well-developed, well-nourished, appropriately interactive Eyes: PERRLA, EOMI, anicteric sclera, mildly injected conjunctiva HENT: Normocephalic, atraumatic. Moist mucous membranes Neck: Supple with full range of motion. No jugular venous distension. No bruits. No thyromegaly. Cardiovascular: tachy rate and reg rhythm with no murmurs, rubs, or gallops appreciated Pulmonary: clear to auscultation bilateral, Normal respiratory effort with no use of accessory muscles. Abdomen: Bowel tones present. Soft, nondistended, severe tenderness in the left mid abd, severe left cva tenderness. Voluntary guarding. No rebound tenderness. No hepatosplenomegaly or masses appreciated. Extremities: No clubbing, cyanosis, edema, or lymphadenopathy appreciated. Skin: Normal temperature, turgor, and texture; no rash, ulcers, or subcutaneous nodules appreciated. Neurological: Nonfocal neurologic exam, no tremors noted, able to move all extremities spontaneously Psychiatric: Flat affect and labile mood, tearful at time. Alert and oriented to person, place, and time. IVs and Medications Medications Reviewed: Medications were reviewed in detail Lab and Diagnostics Result Diagram: 01/28/17 0715 01/28/17 0420 X-Rays, CTs and MRIs PROCEDURE: CT ABDOMEN AND PELVIS WITH CONTRAST IMPRESSION: 1. Left pyelonephritis and a complex perinephric collection consistent with perinephric abscess measuring 2.4 x 5.8 x 4.2 cm. 2. Mild concentric thickening of the urinary bladder consistent with cystitis. Dictated by: Gurpreet De La Garza M.D. on 01/26/2017 at 12:32 Assessment & Plan 31yo male with past medical history of tobacco dependence, depression, and diabetes admitted with sepsis secondary to a perinephric abscess. Sepsis, acute, POA and improving -Patient presented with WBC>12, HR>90 on admission. -secondary perinephric abscess -treatment as below. Perinephric abscess, POA and improving -CT scan with complex abscess as above -Appreciate Dr. Pulido's input, Will continue vancomycin and Cefipime at this time. -Will D/C Vanco when the MRSA screen is negative. -Urology consulted and recommended a percutaneous drainage by IR. Patient underwent a percutaneous aspirate of the perinephric abscess and 6cc of purulent fluid was drained on 01/27/17. Because of the multiloculated nature of it that was not felt to be amenable to leaving the drain in place for drainage by IR and so the aspirate was done and the needle was removed. Will consider repeating the CT scan tomorrow to monitor for changes. -Blood and urine cultures pending. Aspirated fluid from abscess was sent for gram stain and culture. Results pending. -pain management with hydromorphone Q2H PRN and Oxycodone 5-10mg PO Q4H. Patient reports severe reaction to codeine, but will continue to monitor his symptoms on the Oxycodone -Continue IVF. Diabetes Type 2, chronic, POA and uncontrolled. -medium regular correction SSI -Lantus dose was reduced to 15 units due to NPO yesterday. Will resume home dose of Lantus 38qHS today. Depression, POA. -continue home medication High-risk medication, parenteral Dilaudid Patient was admitted for >2 midnights under inpatient status due to severity and complexity of illness Full resuscitation Pain Evaluation: Adequate Pain Control GI Prophylaxis: Not indicated VTE Prophylaxis: Sub-Q Heparin (Unfractionated), SCDs (SCDs until after procedure then transition to heparin subq for DVT prophylaxis) Resuscitation Status: CPR: Attempt Resuscitation Attending Statement Patient was seen and examined with house staff. Agree with all attached documentation. Sai Barajas DO Jan 28, 2017 08:54 Frantz Guadarrama MD Jan 28, 2017 15:29
[2017-01-28 16:04] VITALS: BP 139/99; PULSE 115; RESP 18; O2SAT 95
--- NOTE | 2017-01-28 17:16 | NUR ---
Transfer from [facility] [place] [facility] [place] given to Hesham Xie RN. BP 139/99 HR 115 T 37.2 RR 18. Cefepime 25 mLs/hr, NS @ 100 mLs/hr. Last dose of Dilaudid 1 mg given at 1636, pt reported reassessment pain at 04/05. Pt aware of transfer. Pt transferred at approximately 1720. All personal belongings transferring with patient. Care continues.
--- NOTE | 2017-01-28 17:20 | PCM.PNSURG ---
Subjective Date of Service: Jan 28, 2017 Date of Service: Jan 28, 2017 Visit Information: Reason for Visit Pyelonephritis, Hypergylcemia Surgery/Surgery Date Post-Op Day # NA Date of Admission: Jan 26, 2017 at 21:47 Hospital Day # Subjective: Pt with ongoing c/o pain. Declines/states cannot tolerate several oral pain medications which might offer better more even pain control now s/p CT guided needle aspiration from the L renal and perirenal abscess G+ cocci and may WBC on Gram stain pending further results Postop General: No Shortness of Breath, Other (ongoing c/o flank pain) Gastrointestinal: Tolerating Oral Feedings, No N/V Pain Management: IV Push Postop Activity: Ambulating Independently Objective Vital Sign- Last 8 Hours Date Time Temp Pulse Resp B/P Pulse Ox O2 Delivery O2 Flow Rate FiO2 01/28/17 16:04 37.2 115 18 139/99 95 Room Air Intake and Output- Last 8 Hour 01/28/17 Cumulative From/Thru 07:00 01/26/17 18:25 - 01/28/17 06:23 Intake Total 2358 ml 5693 ml Output Total 1300 ml 1750 ml Balance 1058 ml 3943 ml Intake Oral 872 ml 872 ml IV Total 1486 ml 4821 ml Output Urine Total 1300 ml 1750 ml # Voids 2 General: Oriented X3, Cooperative, Other (uncomfortABLE) Neck: Other (midline trachea) Heart: Other (RR , mildly tacy, warm ext) Abdomen: Appropriately tender, Guarding, No masses Extremities: Warm Neuro: Grossly Neurologically Intact (developmental delay) Result Diagram: 01/28/17 0715 01/28/17 0420 Assessment & Plan Impression L renal and perinephric abscess admitted 01/26 process loculated enough at admission CT to preclude good drainage percutaneous aspirated cx pending urine cultures neg to date empiric antibiotics per Dr Pulido Clinically tomy Problems: Plan Agree with cont supportive care consider reimage in few days to assess status of his abscess, often will coalesce into larger pockets more amenable to pigtail/perc drainage Will follow with you please do not hesitate to call with any surgical questions VTE Prophylaxis: Sub-Q Heparin (Unfractionated), SCDs (SCDs until after procedure then transition to heparin subq for DVT prophylaxis) Resuscitation Status: CPR: Attempt Resuscitation Tamica Garrett MD Jan 28, 2017 17:20
[2017-01-28 17:41] VITALS: BP 139/81; PULSE 102; RESP 20; O2SAT 98
--- NOTE | 2017-01-28 18:24 | NUR ---
transfer to [facility] received report and patient transferred to [facility] rm 1025 at 1740hrs. patient c/o left flank radiating to left abdomen, increased pain and tenderness on palpation. pain medication given, blood sugar checked. continue plan of care.
[2017-01-28 19:21] VITALS: BP 137/92; PULSE 99; RESP 18; O2SAT 98
[2017-01-28] MEDS ORDERED: Insulin GLARgine 100 Unit/mL Syringe SUBQ SCH (21:00)
[2017-01-28] MEDS: Insulin GLARgine 100 Unit/mL Syringe SUBQ SCH (21:04)
[2017-01-29] MEDS: Sodium Chloride LOK Flush 10 mL Syringe IVFLUSH SCH ×3 (00:30→16:30)
[2017-01-29] MEDS: Vancomycin Inj 1,000 MG in IV Premix 1 EACH IV SCH ×3 (01:42→17:24)
[2017-01-29] MEDS: HYDROmorphone 0.5 mg/0.5 mL iSecure Syringe IVPUSH PRN ×12 (01:43→23:30)
[2017-01-29] MEDS: 0.9% Sodium Chloride 1,000 ML IV SCH ×3 (02:20→19:41)
[2017-01-29] MEDS: Cefepime 2,000 mg/100 mL D5W Minibag Plus IV SCH ×6 (04:10→19:36)
--- NOTE | 2017-01-29 05:25 | NUR ---
Pain management Patient c/o 8-05/05 pain consistently through out shift. Pain was not noted at a tolerable level. Heat pad given, states it is "Soothing" and "Helps." Alert, oriented, and able to make needs known.
[2017-01-29 06:09] LABS: BASOPHILS % (AUTO) 0.1 % (0-3); EOSINOPHILS % (AUTO) 0.4 % (0-5); MONOCYTES % (AUTO) 9.2 % (4-12); Mean Corpuscular Hemoglobin 27.5 pg (27.0-35.0); Mean Corpuscular Volume 83.2 fL (81-100); NEUTROPHILS % (AUTO) 85.1 % (40-74); Platelet Count 361 bil/L (150-400)
[2017-01-29] MEDS: Insulin LISPRO 300 Unit/3 mL Inj SUBQ SCH ×4 (08:00→21:49)
[2017-01-29] MEDS ORDERED: Vancomycin Serum Trough XX ONE (08:00)
[2017-01-29] MEDS: Vancomycin Dose per Pharmacist XX SCH (08:30)
--- NOTE | 2017-01-29 10:47 | NUR ---
NUTRITION ASSESSMENT: ASSESS:31 YO male admitted with hyperglycemia, L renal and perinephric abscess, loculated enough at admission CT to preclude good percutaneous drainage. Aspirated cx pending. Surgery to consider re-imaging in few days to assess status of his abscess, often will coalesce into larger pockets more amenable to pigtail/perc. drainage. Patient with A1c 12.8, will require diabetes education. PMHx:Type 2 diabetes, cleft palate s/p surgery, developmental delay. DIET:consistent carbohydrate. PO intake 25% - 100% trays. LABS: Reviewed. Cr 0.47, Glu 116, A1c 12.8. MEDICATIONS: Reviewed. Insulin. NUTRITION FOCUSED PHYSICAL ASSESSMENT: GI symptoms / stool: No BM reported.Sherman: 18. Skin Integrity: No issues reported. ANTHROPOMETRICS: Current Wt: 61.2 kgBMI: 18.0 kg/m2.Admit weight: 58.18. IBW: 80.9 kg (74% IBW). Patient's weight has not varied significantly over the years. ESTIMATED NEEDS (UNDERWEIGHT): Calories: 1800 - 2100 kcal (30 - 35 kcal / kg BW) Protein: 72 - 90 g protein (1.2 - 1.5 g / kg BW) NUTRITION DIAGNOSIS: 1)Altered nutrition-related labs related to diabetes out of control, as evidenced by A1c 12.8. 2) Underweight status likely related to poorly controlled diabetes, as evidenced by BMI 17.9. INTERVENTION: 1) Pt. will require significant diabetes education, despite developmental delay; last inpatient education 2003. MONITOR/EVALUATE: Diet tolerance, PO intake, labs, GI/nutrition status. Follow up per moderate nutrition risk guidelines.
--- NOTE | 2017-01-29 12:06 | PCM.PHAPRO ---
Progress Vancomycin Management: -Trough level returned this morning as 19.6. Dose prior to trough level was hung 1 hour late and trough was drawn at 0540 rather than 0800 producing a falsely elevated level of 19.6. Mrsa pcr is negative -Plan: will leave dose as Vancomycin 1gm iv [id number] as Dr. Pulido will be discontinuing all IV antibiotics tomorrow Marjorie Villagran [facility] Jan 29, 2017 12:06
--- NOTE | 2017-01-29 12:10 | PROG NOTE ---
[address] [address] PROGRESS NOTE PATIENT: LESA SANDERS : 1985 MR#: [id number] ADMIT: 01/26/2017 JOB ID: [id number] DATE: 01/29/2017 INFECTIOUS DISEASE FOLLOWUP NOTE: REASON FOR FOLLOWUP: Left-sided perinephric abscess due to Staph aureus. INTERVAL HISTORY: The patient continues to complain of severe left flank pain. No associated fevers or chills. No cough or shortness of breath. No nausea or vomiting. PHYSICAL EXAMINATION: Reveals an afebrile, nervous-appearing young gentleman. Temp 36.7, pulse 99, respiratory rate 18, blood pressure 137/92. He is saturating well on room air. He is in no acute distress, though he does appear pensive. Oral cavity negative. Lungs clear. Cardiac tones without change. Severe left flank tenderness; even a light bump to the left flank causes the patient to go into spasms of pain. Abdomen negative. LABORATORIES: Include white count 12,400, platelet count down to 361. Creatinine 0.47. A culture of the aspirate from the perinephric abscess is growing Staph aureus, susceptibilities due tomorrow. Blood cultures negative and a MRSA screen of the nose negative. IMPRESSION: This patient has a large and complex left perinephric abscess which somewhat surprisingly is due to Staph aureus. There is no history of IV drug use, staph bacteremia, or endocarditis, and our blood cultures are negative. For reasons which are not clear to me only one set of blood cultures was done prior to initiation of antibiotics, however. RECOMMENDATIONS: 1. Will continue with vancomycin at this point, even though the MRSA screen is negative, as we have had some false negative MRSA swabs of the nares where the person later had very severe MRSA infection even with negative nasal swab. 2. Will switch the cefepime to cefazolin in maximal doses as I think this will probably be the drug we will continue with tomorrow after we discover this is hopefully an MSSA. 3. Will go ahead and get a transthoracic echocardiogram at this time as well to see if there is the possibility of endocarditis here as a cause of the patient's Staph perinephric abscess. 4. ID will continue to closely follow this case with you. Thank you very much.
--- NOTE | 2017-01-29 12:55 | PCM.PNMED ---
Subjective Date of Service Jan 29, 2017 Subjective Pt still complaining of Left Flank pain. Exam Vital Signs Vital Sign - Last Date Time Temp Pulse Resp B/P Pulse Ox O2 Delivery O2 Flow Rate FiO2 01/28/17 19:21 36.7 99 18 137/92 98 Room Air Intake and Output 01/28/17 01/28/17 01/29/17 Cumulative From/Thru 15:00 23:00 07:00 01/26/17 18:25 - 01/29/17 05:04 Intake Total 1954 ml 7647 ml Output Total 350 ml 1850 ml 3950 ml Balance -350 ml 104 ml 3697 ml Intake Oral 600 ml 1472 ml IV Total 1354 ml 6175 ml Output Urine Total 350 ml 1850 ml 3950 ml # Voids 2 # Bowel Movements 0 0 IVs and Medications Medications Reviewed: Medications were reviewed in detail Lab and Diagnostics Result Diagram: 01/29/17 0501/29/17 0520 Microbiology JESSIE CULT URINE Final 01/29/17-0753 Organism 1 MIXED UROGENITAL ROSS U COLONY COUNT/QUANTITY Less than 10,000 CFU/ml LEFT PERINEPHRIC ABSCESS JESSIE GS (GRAM STAIN) Final 01/28/17-1313 GRAM STAIN RESULT MANY POLYS MODERATE GRAM POS COCCI JESSIE CULT AEROBIC Preliminary 01/29/17-0909 PRELIMINARY ID STAPH, PROBABLE STAPH AUREUS SUSCEPTIBILITIES TO FOLLOW COLONY COUNT/QUANTITY HEAVY GROWTH X-Rays, CTs and MRIs PROCEDURE: CT ABDOMEN AND PELVIS WITH CONTRAST IMPRESSION: 1. Left pyelonephritis and a complex perinephric collection consistent with perinephric abscess measuring 2.4 x 5.8 x 4.2 cm. 2. Mild concentric thickening of the urinary bladder consistent with cystitis. Dictated by: Gurpreet De La Garza M.D. on 01/26/2017 at 12:32 Cardiac Echo Impressions Echo- Pending. Assessment & Plan 31yo male with past medical history of tobacco dependence, depression, and diabetes admitted with sepsis secondary to a perinephric abscess. #Sepsis, acute, POA and improving -Patient presented with WBC>12, HR>90 on admission. WBC downtrending. -secondary perinephric abscess -treatment as below. #Perinephric abscess, POA and improving -CT scan with complex abscess as above -Urology consulted and recommended a percutaneous drainage by IR. Patient underwent a percutaneous aspirate of the perinephric abscess and 6cc of purulent fluid was drained on 01/27/17. Because of the multiloculated nature of it that was not felt to be amenable to leaving the drain in place for drainage by IR and so the aspirate was done and the needle was removed. Will consider repeating the CT scan tomorrow to monitor for changes. - Aspirated fluid from abscess was sent for gram stain and culture>+Staph Aureus - culture abscess despite Neg Nasal MRSA Screen. -pain management with hydromorphone Q2H PRN and Oxycodone 5-10mg PO Q4H. Patient reports severe reaction to codeine, but will continue to monitor his symptoms on the Oxycodone, Attempt to transition to PO pain medications -Continue IVF -ID following- Appreciate Dr. Pulido's input, 01/29-ID Recs- Cefepime switch the cefepime to cefazolin in maximal doses, follow susceptibility. Continue with Vancomycin for now. - Get Echo to rule out endocarditis. . #Diabetes Type 2, chronic, POA and uncontrolled. -medium regular correction SSI -Lantus dose was reduced to 15 units due to NPO yesterday. Will resume home dose of Lantus 38qHS today. -Fingersticks well controlled today. #Depression, POA. -continue home medication High-risk medication, parenteral Dilaudid Patient was admitted for >2 midnights under inpatient status due to severity and complexity of illness Full resuscitation Pain Evaluation: Adequate Pain Control GI Prophylaxis: Not indicated VTE Prophylaxis: Sub-Q Heparin (Unfractionated), SCDs (SCDs until after procedure then transition to heparin subq for DVT prophylaxis) Resuscitation Status: CPR: Attempt Resuscitation Carlos Steinberg MD Jan 29, 2017 12:55
--- NOTE | 2017-01-29 13:00 | NUR ---
Social Work- Multi-Disciplinary Rounds Per multi-disciplinary rounds, pt is not medically ready for discharge at this time. Patient underwent a percutaneous aspirate of the perinephric abscess and 6cc of purulent fluid was drained on 01/27/17. ID following. 01/29-ID Recs- Cefepime switch the cefepime to cefazolin in maximal doses, follow susceptibility. Continue with Vancomycin for now. Get Echo to rule out endocarditis. No social work needs identified in rounds, SW will continue to follow and await orders as needed. Wendy Baker, [employer]ED [employer]ATHER [employer]ER
[2017-01-29 14:45] VITALS: BP 122/88; PULSE 102; RESP 19; O2SAT 99
--- NOTE | 2017-01-29 15:53 | DRSVH ---
[facility] [address] [place] [address] Echocardiogram Report Name: LESA SANDERS Bandar e: 01/29/2017 Height: 72 in Hospital Exam Location: [facility] Weight: 135 lb Gender: Male BSA: 1.8 m2 : 1985 Age: 31 yrs BP: 137/92 mmHg Reason For Study: STAPH ABSCESS Ordering Physician: Performed By: Castro Aldridge Referring Physician: Dr. Yuniel Britt Interpretation Summary The left ventricle is normal in size, wall thickness, and systolic function without any focal wall motion abnormalities. The ejection fraction is estimated to be 60-65%. The right ventricle is normal in size and function. Pulmonary artery pressures cannot be estimated because of the lack of a measurable TR jet velocity. Both atria are normal in size. The aortic valve is bicuspid. The peak aortic velocity is 2.8 m/sec. The aortic valve mean gradient is 18.3 mmHg. The calculated aortic valve area is 1.4 cm2. There is mild to moderate aortic stenosis. There is mild aortic regurgitation. There is no other significant valvular heart disease. The ascending aorta is mildly enlarged. No obvious findings that would suggest endocarditis. Procedure: A two-dimensional transthoracic echocardiogram with color flow and Doppler was performed. The study quality was technically good. There is no prior echocardiogram noted for this patient. The patient was in normal sinus rhythm during the exam. Left Ventricle: The left ventricle is normal in size, wall thickness, and systolic function without any focal wall motion abnormalities. The ejection fraction is estimated to be 60-65%. Assessment of diastolic parameters indicates normal left ventricular diastolic function and normal filling pressures. Right Ventricle: The right ventricle is normal in size and function. Atria: Both atria are normal in size. The interatrial septum is intact with no evidence for an atrial septal defect. Mitral Valve: The mitral valve is normal in structure and function. There is no mitral regurgitation noted. Aortic Valve: The aortic valve is bicuspid. The peak aortic velocity is 2.8 m/sec. The aortic valve mean gradient is 18.3 mmHg. The calculated aortic valve area is 1.4 cm2. There is mild to moderate aortic stenosis. There is mild aortic regurgitation. Tricuspid Valve: The tricuspid valve is normal in structure and function. No tricuspid regurgitation. Pulmonary artery pressures cannot be estimated because of the lack of a measurable TR jet velocity. Pulmonic Valve: The pulmonic valve is normal in structure and function. There is trace pulmonic regurgitation. There is no other significant valvular heart disease. Great Vessels: The aortic root is normal size. The ascending aorta is mildly enlarged. The pulmonary artery is normal size. The IVC is dilated (diameter is greater than 2.1 cm) yet it collapses greater than 50% with a sniff. This suggests a right atrial pressure of 8 mm Hg. Pericardium/ Pleura There is no pericardial effusion. There is a small left -sided pleural effusion. MMode/2D Measurements & Calculations LVIDd: 4.6 cm LA dimension: 2.4 cm RA long axis LVOT diam: 2.0 cm LVIDs: 2.9 cm Ao root diam FS: 35.9 % LA A2 area: 13.5 cm RA area EPSS: 0.83 cm LA A4 area: 13.9 cm Aortic Jxn: 2.0 cm IVSd: 0.92 cm LA length (vol) : 15.2 cm asc Aorta Diam LVPWd: 0.95 cm RA vol LA vol: 39.1 ml : 43.7 ml Ao Arch Diam (Prox LA vol index RA Trans): 2.1 cm : 24.3 mm2 IVC diam: 2.2 cm LV holden. diameter/BSA LV sys. diameter/BSA (cm/m^2): 2.5 (cm/m^2): 1.6 Doppler Measurements & Calculations Ao V2 max MV E max manuel MV E/A: 1.7 PA V2 max : 280.2 cm/sec : 122.0 cm/sec Med Peak E' Manuel : 93.7 cm/sec Ao max P.4 mmHg MV A max manuel PA mean PG Ao mean P.3 mmH.6 cm/sec E/E' med: 10.1 : 2.2 mmHg LVOT Max Manuel Pulm A Revs Dur : 121.1 cm/sec MV A dur HERMELINDA(I,D): 1.4 cm : 0.10 sec sev ratio: 0.44 MV dec time: 0.17 secAo V2 mean LV V1 max PG PA V2 mean : 200.5 cm/sec : 70.9 cm/sec Ao V2 VTI: 46.4 cm LV V1 VTI PA pr(Accel) HERMELINDA(V,D): 1.4 cm2 : 20.4 cm : 17.3 mmHg HERMELINDA indexed to BSA Pulm A Revs Dur - MV A (cm^2/m^2): 0.78 Dur: -0.01 msec Reading Physician:PM
[2017-01-29] MEDS ORDERED: CeFAZolin 2 Gm/50 mL D5W Duplex Bag IV SCH (16:30)
[2017-01-29 19:28] VITALS: BP 112/75; PULSE 95; RESP 18; O2SAT 98
[2017-01-29] MEDS: Insulin GLARgine 100 Unit/mL Syringe SUBQ SCH (21:49)
--- NOTE | 2017-01-29 22:20 | NUR ---
Anxiety r/t Homelessness Sitting in room with TV off, Pt appeared quiet and not overly conversational, however when asked about this job and home life he opened up and expressed feeling hopeless and helpless, that his mother will kick him out if he cannot pay her. He state multiple times that he is 'basically homeless.' He states that he lost his job one month ago due to work absences related recent hospitalization, his employer has not 'put him back on the schedule', his last paycheck does not cover his rent, he does not have a vehicle or funds to obtain one. He has other family members in the area, siblings who he does not feel he can live with, and grandparents in [place]. I encouraged the patient to express his feelings and acted as a supportive listener, gave recommendations to accept the help of social workers here and local programs that can assist him. Pt was encouraged to focus on improving health, and is cooperative with caregivers in all ways. Pain medications provided PRN. Pt is AOx4, compliant with ADA diet and watchful of his sodium intake. Care continues
[2017-01-30] MEDS: HYDROmorphone 0.5 mg/0.5 mL iSecure Syringe IVPUSH PRN ×6 (01:32→11:14)
[2017-01-30] MEDS: Vancomycin Inj 1,000 MG in IV Premix 1 EACH IV SCH ×2 (01:32→09:11)
[2017-01-30] MEDS: Sodium Chloride LOK Flush 10 mL Syringe IVFLUSH SCH ×4 (03:24→22:24)
[2017-01-30] MEDS: Cefepime 2,000 mg/100 mL D5W Minibag Plus IV SCH ×2 (03:34)
[2017-01-30 05:26] VITALS: BP 117/81; PULSE 87; RESP 16; O2SAT 97
--- NOTE | 2017-01-30 06:45 | NUR ---
Pain IV in RFA infusing NS at TKO with abx, no complaints of pain in arm. L flank and abdomen are tender and painful at all times, pt reports 9/10 pain and given PRN dilauded, oxycodone, and apap with pain reduction to 6/10 only once. Pt states he feels the dilauded works better when not 'diluted' in the NS. Pt requests additional blood sugar checks twice this shift and requests snacks based on his blood sugar. No complaints of nausea or SOB. Care continues
[2017-01-30 07:53] LABS: BASOPHILS % (AUTO) 0.1 % (0-3); EOSINOPHILS % (AUTO) 0.5 % (0-5); MONOCYTES % (AUTO) 9.6 % (4-12); Mean Corpuscular Hemoglobin 27.2 pg (27.0-35.0); Mean Corpuscular Volume 84.9 fL (81-100); NEUTROPHILS % (AUTO) 82.2 % (40-74); Platelet Count 401 bil/L (150-400)
[2017-01-30] MEDS: Insulin LISPRO 300 Unit/3 mL Inj SUBQ SCH ×4 (08:00→22:24)
[2017-01-30] MEDS: 0.9% Sodium Chloride 1,000 ML IV SCH ×2 (08:20→18:10)
[2017-01-30] MEDS: Vancomycin Dose per Pharmacist XX SCH (08:30)
[2017-01-30 10:12] VITALS: PULSE 98
[2017-01-30] MEDS ORDERED: HYDROmorphone 1 mg/mL Inj IVPUSH ONE (11:35)
--- NOTE | 2017-01-30 11:35 | PROG NOTE ---
[address] [address] PROGRESS NOTE PATIENT: LESA SANDERS : 1985 MR#: [id number] ADMIT: 01/26/2017 JOB ID: [id number] CORRECTED REPORT: DATE: 01/30/2017 INFECTIOUS DISEASE FOLLOW UP NOTE: REASON FOR FOLLOWUP: Complicated MSSA perinephric abscess. INTERVAL HISTORY: Recall this is the young gentleman who was admitted with severe flank pain and was found to have a very complicated perinephric abscess. Only a small amount of fluid could be obtained from an initial drainage procedure but that fluid has yielded MSSA. The patient has been treated appropriately with broad-spectrum antibiotics and has been continued very severe left flank pain which perhaps has been a bit better over the past day or two but still severe. No fevers, chills or sweats. No cough, shortness of breath or any obvious precipitating cause for this MSSA abscess. He has no cutaneous lesions and he has not injected IV drugs. The patient tells us he is very anxious to be discharged. Further discussions suggest he may not have a clear-cut place of residence once he leaves which would raise problems if he were to go home with IV antibiotics. Temperature 36.5, pulse 98, respiratory rate 16, blood pressure 117/81. He is saturating well on room air. Mental status is clear though the patient seems depressed. Lungs are clear posteriorly. Cardiac tones without murmur. The patient is still exquisitely sensitive on the left flank area. The remainder of the abdomen benign. No skin rash. LABORATORIES: Include white count 11,000 which is slowly coming down. Still with left shift, 82% segs. Creatinine 0.47. Urinalysis 11-50 white cells. Urine culture grew mixed teja but the aspirate from the perinephric abscess grew MSSA sensitive to all Staph aureus antibiotics. IMAGING: No new imaging has been done since the CT aspirate on the . The patient is said to have a severe allergy to PENICILLIN with anaphylaxis. IMPRESSION: This is an unfortunate young gentleman with a large MSSA left perinephric abscess. It is unclear exactly why this particular patient suffered this Staph aureus perinephric abscess without any history of soft tissue infection or injection drug use, but nonetheless have positive cultures and the diagnosis is not ambiguous. He is slowly improving with IV antibiotics but obviously the size of this abscess will almost mandate some additional drainage procedures. This morning I have spoken to Dr. Staton of the Urology team. She plans to order a repeat CT scan today and come see the patient this afternoon, with possible movement towards additional drainage. The choice of antibiotics is made a little difficult by his PEN allergy history. He has been tolerating cefepime well as well as vanco, and at this point, we can certainly narrow the antibiotics. RECOMMENDATIONS: 1. Will discontinue the vanc, cefepime combo. 2. I had thought about starting the patient on Ancef but given the severity of his PENICILLIN allergy, I think maybe we will just go ahead and use ceftriaxone. 3. As mentioned this case has been discussed with Urology and they are going to be evaluating the patient later today. 4. Will continue to follow this patient very closely with you. Penicillin or cephalosporin desensitization may be indicated early next week. ADDITIONAL INFORMATION: IMPRESSION: I discussed this case in detail with Dr. Staton of Urology. The followup CT scan done today shows a multiloculated left perinephric abscess. The radiologist felt strongly that there was no way this would be amenable to effective percutaneous drainage and Dr. Staton agrees. It was also noted the patient has a bit of pelvic ascites and a new small left pleural effusion. Note that the pleural effusion is on the same side as the perinephric abscess. Dr. Staton and I discussed this case and she felt there was no indication for surgery, which could be very difficult and lead to a great deal of complications in this poorly controlled diabetic gentleman. Given his unstable home situation, I also am not enthusiastic about very prolonged outpatient IV antibiotics and I am considering switching the patient early to an oral agent with good potency against his MSSA. Given he has a very serious history of PENICILLIN ALLERGY one possible candidates here would be Bactrim. RECOMMENDATIONS: 1. I would continue for now with the IV ceftriaxone as had mentioned in this morning's note. 2. Will go ahead and start the patient on Bactrim 2 double-strength tablets p.o. b.i.d. 3. If the patient's potassium and creatinine are stable, and he is able the tolerate this high-dose Bactrim therapy, then I think he may be a candidate for oral outpatient therapy. 4. If the patient is discharged on this high-dose Bactrim for a prolonged period, which I suspect will require weeks of therapy, I would like to see him in my clinic on February 11 so that I can reassess his therapy. 5. Note that the patient still has very severe flank pain, though, and I am skeptical as to whether he will be ready for discharge anytime soon given the severity of his pain. Thank you very much. Addenda added by DORIAN 02/02/17 at 9:43am
--- NOTE | 2017-01-30 11:49 | PCM.PNSURG ---
Subjective Date of Service: Jan 30, 2017 Date of Service: Jan 30, 2017 Visit Information: Reason for Visit Pyelonephritis, Hypergylcemia Surgery/Surgery Date Post-Op Day # Date of Admission: Jan 26, 2017 at 21:47 Hospital Day # Subjective: Mr Neely reports LEFT sided back pain. He notes the pain has resulted in loss of appetite. He is ambulating independently. His regimen of dilaudid IV and Oxycodone is helpful, but the efficacy is short lived, about 20-30 min for IV dilaudid. His pain, presently, is 10/10. Pain Management: PO, IV Push Postop Activity: Ambulating Independently Objective Vital Sign- Last 8 Hours Date Time Temp Pulse Resp B/P Pulse Ox O2 Delivery O2 Flow Rate FiO2 01/30/17 10:12 98 01/30/17 05:26 36.5 87 16 117/81 97 Room Air Intake and Output- Last 8 Hour 01/30/17 Cumulative From/Thru 07:00 01/26/17 18:25 - 01/30/17 05:52 Intake Total 1400 ml 05782 ml Output Total 2260 ml 8160 ml Balance -860 ml 2995 ml Intake Oral 1400 ml 4472 ml IV Total 6683 ml Output Urine Total 2260 ml 8160 ml # Voids 2 # Bowel Movements 0 General: Alert, Cooperative, Other (tearful when recounting his pain; extremely thin) Abdomen: Benign, Soft, Non-tender, Other (he took my hand to guide it over location of pain: LEFT low/mid back along the spine and laterally; he has scratch patino/excoriation mildly; no erythema or other fullness. He is very TTP over aforementioned area LEFT low back.) Extremities: Warm (w/o edema) Neuro: Cranial Nerves 2-12 nl Catheters: None Result Diagram: 01/30/17 0510 01/30/17 0510 Assessment & Plan Impression LEFT renal abscess Problems: Plan By his labs and VS, he is improving - His pain, however, is still severe - We discussed that I have ordered CT for today - I will increase his IV dilaudid to 2 mg IV q2h PRN IR perc aspiration of abscess: cooper sensitive Staph We reviewed the nature of his renal abscess - I linnea diagrams to demonstrate his kidney and location of abscess - The abscess was fairly loculated, making significant aspiration difficult/ impossible - We discussed that renal abscesses are serious form of urinary tract infection. - Given how loculated the collection was, this will take time to resolve, on the order of weeks, in terms of pain. He was upset/angry and tearful about the pain, which I acknowledged as reasonable, but I do think he is improving We discussed the etiology of his pain--renal capsule distension, inflammation, and the size of abscess We reviewed his risk factors - His identifiable risk is DM 1 - He states his PCP is Dr Britt; in review of clinic records, he saw Dr Britt once in 2014, at which time his HbA1c was 14.6. My suspicion is that the patient has not been managing his DM well. I will f/u on the images from the CT today; of course, my hope is the abscess has decreased in size. If this is confirmed, he could DC from hospital from this standpoint and receive IV abx as outpt if deemed ok by Dr Pulido (very much appreciate his care of this man), though his pain control is the outstanding problem at present. - I do not have indication to recommend urologic intervention at this point. Very much appreciate hospitalist management and care of Mr Neely. VTE Prophylaxis: Sub-Q Heparin (Unfractionated), SCDs (SCDs until after procedure then transition to heparin subq for DVT prophylaxis) Resuscitation Status: CPR: Attempt Resuscitation Marjorie Staton MD Jan 30, 2017 11:49
[2017-01-30] MEDS: cefTRIAXone Inj 2,000 MG in Dextrose 5% Minibag Plus 50 ML IV SCH (12:08)
--- NOTE | 2017-01-30 12:51 | PCM.PNMED ---
Subjective Date of Service Jan 30, 2017 Subjective Pt still has severe Left Flank Pain. Denies fever/chills. Exam Vital Signs Vital Sign - Last Date Time Temp Pulse Resp B/P Pulse Ox O2 Delivery O2 Flow Rate FiO2 01/30/17 10:12 98 01/30/17 05:26 36.5 16 117/81 97 Room Air Intake and Output 01/29/17 01/29/17 01/30/17 Cumulative From/Thru 15:00 23:00 07:00 01/26/17 18:25 - 01/30/17 05:52 Intake Total 2108 ml 1400 ml 44290 ml Output Total 1950 ml 2260 ml 8160 ml Balance 158 ml -860 ml 2995 ml Intake Oral 1600 ml 1400 ml 4472 ml IV Total 508 ml 6683 ml Output Urine Total 1950 ml 2260 ml 8160 ml # Voids 2 # Bowel Movements 0 Exam Gen: AOx3. Discomfort due to pain with movement. HEENT: NCAT, PERRLA, EOMI, MMM, sclera anicteric. Neck: Soft, supple, symmetrical, no thyromegaly/JVD/LAD. Resp: CTAB, no R/R/W. CV: RRR, nl S1/S2, +Murmur- Systolic. Abd: Soft, (+) BS, +Severe L CVAT. Ext: +PP, -edema Skin: warm/dry/intact Neuro/Psych: No focal deficits, CN II-XII grossly intact. AAOx3, cooperative , appropriate mood/affect. IVs and Medications Medications Reviewed: Medications were reviewed in detail Lab and Diagnostics Result Diagram: 01/30/1750901/30/17 05 Microbiology JESSIE CULT URINE Final 01/29/17-0753 Organism 1 MIXED UROGENITAL ROSS U COLONY COUNT/QUANTITY Less than 10,000 CFU/ml LEFT PERINEPHRIC ABSCESS JESSIE GS (GRAM STAIN) Final 01/28/17-1313 GRAM STAIN RESULT MANY POLYS MODERATE GRAM POS COCCI JESSIE CULT AEROBIC Preliminary 01/29/17-0909 PRELIMINARY ID STAPH, PROBABLE STAPH AUREUS SUSCEPTIBILITIES TO FOLLOW COLONY COUNT/QUANTITY HEAVY GROWTH X-Rays, CTs and MRIs PROCEDURE: CT ABDOMEN AND PELVIS WITH CONTRAST IMPRESSION: 1. Left pyelonephritis and a complex perinephric collection consistent with perinephric abscess measuring 2.4 x 5.8 x 4.2 cm. 2. Mild concentric thickening of the urinary bladder consistent with cystitis. Dictated by: Gurpreet De La Garza M.D. on 01/26/2017 at 12:32 Cardiac Echo Impressions Echocardiogram Report Name: LESA SANDERS Bandar e: 01/29/2017 Height: 72 in Hospital Exam Location: [facility] Weight: 135 lb Gender: Male BSA: 1.8 m2 : 1985 Age: 31 yrs BP: 137/92 mmHg Reason For Study: STAPH ABSCESS Ordering Physician: Performed By: Castro Aldridge Referring Physician: Dr. Yuniel Britt Interpretation Summary The left ventricle is normal in size, wall thickness, and systolic function without any focal wall motion abnormalities. The ejection fraction is estimated to be 60-65%. The right ventricle is normal in size and function. Pulmonary artery pressures cannot be estimated because of the lack of a measurable TR jet velocity. Both atria are normal in size. The aortic valve is bicuspid. The peak aortic velocity is 2.8 m/sec. The aortic valve mean gradient is 18.3 mmHg. The calculated aortic valve area is 1.4 cm2. There is mild to moderate aortic stenosis. There is mild aortic regurgitation. There is no other significant valvular heart disease. The ascending aorta is mildly enlarged. No obvious findings that would suggest endocardit Assessment & Plan 31yo male with past medical history of tobacco dependence, depression, and diabetes admitted with sepsis secondary to a perinephric abscess. #Sepsis, acute, POA and improving -Patient presented with WBC>12, HR>90 on admission. WBC downtrending. -secondary perinephric abscess -treatment as below. #Perinephric abscess, POA and improving -CT scan with complex abscess as above -Urology consulted and recommended a percutaneous drainage by IR. Patient underwent a percutaneous aspirate of the perinephric abscess and 6cc of purulent fluid was drained on 01/27/17. Because of the multiloculated nature of it that was not felt to be amenable to leaving the drain in place for drainage by IR and so the aspirate was done and the needle was removed. Will consider repeating the CT scan tomorrow to monitor for changes. - Aspirated fluid from abscess was sent for gram stain and culture>+Staph Aureus - culture abscess despite Neg Nasal MRSA Screen. -pain management with hydromorphone Q2H PRN and Oxycodone 5-10mg PO Q4H. Patient reports severe reaction to codeine, but will continue to monitor his symptoms on the Oxycodone, Attempt to transition to PO pain medications -Continue IVF. -Echo showed no evidence of Endocarditis. -ID following- Appreciate Dr. Pulido's input. Vancomycin and Cefepime switch the cefepime to cefazolin in maximal doses, follow susceptibility. -01/30- Cx shows MSSA. ID changed to Ceftriaxone. Has severe allergy so Penicillin or cephalosporin desensitization may be indicated early next week. -Urology following, Dr. Staton. CT Abd today to determine if abscess smaller. - Increased Dilaudid to 2mg IV q2h prn. Transition to PO once discharge planning started. #Diabetes Type 2, chronic, POA and uncontrolled. -medium regular correction SSI -Lantus dose was reduced to 15 units due to NPO yesterday. Will resume home dose of Lantus 38qHS today. -Fingersticks well controlled today. - Upon discharge will need to ensure compliant with treatment and diabetic follow up appts w/ PCP as likely non-compliant given Hba1c >14% in past. #Depression, POA. -continue home medication High-risk medication, parenteral Dilaudid Patient was admitted for >2 midnights under inpatient status due to severity and complexity of illness Full resuscitation Pain Evaluation: Pain not Controlled GI Prophylaxis: Not indicated VTE Prophylaxis: Sub-Q Heparin (Unfractionated), SCDs (SCDs until after procedure then transition to heparin subq for DVT prophylaxis) VTE Mechanical Devices: Intermittant Pneumatic CD Resuscitation Status: CPR: Attempt Resuscitation Time spent 45 minutes Carlos Steinberg MD Jan 30, 2017 12:51
[2017-01-30] MEDS: HYDROmorphone 1 mg/mL Inj IVPUSH PRN ×5 (13:34→22:27)
--- NOTE | 2017-01-30 14:26 | DRSVH ---
PROCEDURE: CT ABDOMEN AND PELVIS WITH CONTRAST ([id number]) INDICATIONS: renal abscess TECHNIQUE: After the administration of intravenous contrast, 5 mm thick sections acquired from the diaphragm to the symphysis. 5 mm coronal and sagittal reformats were acquired. For radiation dose reduction, the following was used: automated exposure control, adjustment of mA and/or kV according to patient drew valencia COMPARISON: [facility], CT, CT ASP RENAL PELVIC CYST, 01/27/2017, 13:51. FINDINGS: Image quality: Excellent. ABDOMEN: Lung bases: Partially visualized mild/moderate left basilar pleural effusion with dense left lower l obe infiltrates.. Solid organs: Liver and spleen are normal in size and enhancement. Gallbladder is present. Biliary system is non dilated. Pancreas enhances normally. No adrenal nodules. Normal right kidney. There is a multiloculated fluid collection posterior to the left kidney which measures 3.8 x 6.7 x 9.2 CM a nd extends into the postero-lateral aspect of the kidney Peritoneum and bowel: Bowel loops demonstrate normal wall thickness and caliber. Patulous colon cont aining a moderate amount stool. No free fluid or air. The appendix is not identified. There are no s econdary signs of acute appendicitis. Nodes and vessels: No retroperitoneal or mesenteric adenopathy by size criteria. Aorta and inferior vena cava are normal in size. Miscellaneous: No ventral hernias. PELVIS: Genitourinary: Bladder wall thickness is normal. Miscellaneous: No inguinal hernias or adenopathy. New small amount of pelvic ascites. Bones: No suspicious bony lesions. No vertebral body compression fractures. IMPRESSION: 1. Multiloculated left perinephric abscess only minimally changed given differences in technique. Ple ase note, the number of internal septations will preclude effective percutaneous drainage of this abs cess. 2. New small left pleural effusion with dense left basilar consolidation which may represent pneumoni a or aspiration. Simple atelectasis is possible but less likely. 3. New pelvic ascites. Dictated by: Puma Tellez M.D. on 01/30/2017 at 14:15 Approved by: Puma Tellez M.D. on 01/30/2017 at 14:24
--- NOTE | 2017-01-30 15:58 | NUR ---
Multi-Disciplinary Rounds: Per MD in rounds waiting to rule out MRSA and following for ID recommendations. Updated TURBINE TECHNICIAN
--- NOTE | 2017-01-30 17:37 | NUR ---
Agitation Pt became agitated stating "one doctor told me to I can go home." At bedside with MD explaining that he still needed to have good pain control and have antibiotic therapy set up before he would be able to discharge. Pt still disgruntled threatening to leave. MD explained situation again and pt agreed to stay. Pt teaching done regarding antibiotics and pain control. Pt seemed to understand, but is frustrated and wants to go home.
[2017-01-30 20:14] VITALS: BP 130/88; PULSE 91; RESP 18; O2SAT 98
[2017-01-30] MEDS: Heparin 5,000 Unit/mL Inj SUBQ SCH (20:31)
[2017-01-30] MEDS: Insulin GLARgine 100 Unit/mL Syringe SUBQ SCH (22:22)
[2017-01-31] MEDS: HYDROmorphone 1 mg/mL Inj IVPUSH PRN ×5 (00:47→11:13)
[2017-01-31] MEDS: 0.9% Sodium Chloride 1,000 ML IV SCH (03:39)
--- NOTE | 2017-01-31 04:30 | NUR ---
Pain Pt continues to report pain 9/10 to left flank. Requesting IV dilaudid every 2hrs and 10mg oxycodone every 4hrs. Pt reports pain only reduces to 7 or 8/10, but appears to be comfortable in bed watching TV and using Kpad. Pt expressed his frustration early in shift with MD he had this A.M. He is upset that so many MD's are involved and not all saying the same thing. Education done regarding his antibiotics and the need for pain control that did not include IV drugs. He understood and began to cry. He said he is stressed due to home/family and may not have a place to live. He also stated he was just fired form his job due to his admission in the hospital. Offered to have SS speak with him and explore avenues for help. He agreed. Notified charge nurse for AM nurse to request SS. Care continues.
[2017-01-31 05:13] VITALS: BP 130/81; PULSE 92; RESP 18; O2SAT 96
[2017-01-31 06:47] LABS: BASOPHILS % (AUTO) 0.2 % (0-3); EOSINOPHILS % (AUTO) 0.8 % (0-5); Mean Corpuscular Hemoglobin 27.1 pg (27.0-35.0); Mean Corpuscular Volume 84.2 fL (81-100); NEUTROPHILS % (AUTO) 81.1 % (40-74); Platelet Count 446 bil/L (150-400)
[2017-01-31] MEDS: Heparin 5,000 Unit/mL Inj SUBQ SCH (07:51)
[2017-01-31] MEDS: Insulin LISPRO 300 Unit/3 mL Inj SUBQ SCH ×3 (07:51→17:30)
[2017-01-31] MEDS: Sodium Chloride LOK Flush 10 mL Syringe IVFLUSH SCH ×2 (07:53→16:30)
[2017-01-31 08:12] LABS: Bilirubin, Direct < 0.2 mg/dL (0.0-0.3)
[2017-01-31] MEDS ORDERED: Trimethoprim-Sulfa 160 mg-800 mg Tablet PO SCH ×2 (08:30)
[2017-01-31] MEDS: cefTRIAXone Inj 2,000 MG in Dextrose 5% Minibag Plus 50 ML IV SCH (10:57)
--- NOTE | 2017-01-31 11:19 | PCM.PNSURG ---
Subjective Date of Service: Jan 31, 2017 Date of Service: Jan 31, 2017 Visit Information: Reason for Visit Pyelonephritis, Hypergylcemia Surgery/Surgery Date Post-Op Day # Date of Admission: Jan 26, 2017 at 21:47 Hospital Day # Subjective: Mr Neely reports doing much better pain-huffman with the increased dose of Dilaudid IVP PRN 2 mg q2 hrs. He reports pain of 7/10 yesterday; 8/10 presently. He reports better appetite having improved pain control, having almost completed supper last night. He passed nl BM yesterday. He is ambulatory. Gastrointestinal: Good Appetite Pain Management: PO, IV Push Postop Activity: Ambulating Independently Objective Vital Sign- Last 8 Hours Date Time Temp Pulse Resp B/P Pulse Ox O2 Delivery O2 Flow Rate FiO2 01/31/17 05:13 36.9 92 18 130/81 96 Room Air Intake and Output- Last 8 Hour 01/31/17 Cumulative From/Thru 07:00 01/26/17 18:25 - 01/31/17 07:00 Intake Total 800 ml 66138 ml Output Total 1200 ml 09350 ml Balance -400 ml 2617 ml Intake Oral 800 ml 6544 ml IV Total 6683 ml Output Urine Total 1200 ml 59114 ml # Voids 2 # Bowel Movements 0 General: Alert, Cooperative, No Acute Distress Abdomen: Soft, Non-tender, Other (LEFT mid/low back is site of TTP, though exam is improved today in that he tolerates w/o guarding or grimacing) Extremities: Warm Neuro: Cranial Nerves 2-12 nl Catheters: None Result Diagram: 01/31/17 0610 01/31/17 0610 Assessment & Plan Impression Renal abscess Problems: Plan We reviewed his CT scan findings We discussed his pain regimen - After reviewing with Dr Steinberg, I will order the following: Oxycontin 10 mg BID, Dilaudid 2-4 mg q4h PRN pain We discussed stool softener - Will schedule Senokot rather than be PRN - We reviewed the rationale for this We talked about his DM - He states he takes FSBS at home with results of 180-200. It's unclear how diligent he is in his routine, but he acknowledges he saw Dr Britt last about 2 yrs ago. - We discussed having f/u as outpt for mgt of his DM - We reviewed the problem of DM, jacqueline in terms of serious infections like he has now as well as CV dz and risk of stroke, ID, and beyond. If his pain can be controlled on PO, I think he is a reasonable candidate for DC from hospital, though I would respectfully defer to my colleagues Dr Steinberg and Dr Pulido. I will arrange for follow up as outpt later next week. - My office will arrange this. VTE Prophylaxis: Sub-Q Heparin (Unfractionated), SCDs (SCDs until after procedure then transition to heparin subq for DVT prophylaxis) Resuscitation Status: CPR: Attempt Resuscitation Marjorie Staton MD Jan 31, 2017 11:19
[2017-01-31 11:53] VITALS: BP 125/86; PULSE 100; RESP 16; O2SAT 98
--- NOTE | 2017-01-31 13:02 | NUR ---
Pain PRN PO Diludid given per patient request. per pain assessment pain 10/10 to left flank pain. Will reassess pain. K pad applied to left flank for non pharmacologic intervention. Stable blood sugars 111 and 113 so far prior to meals. Tolerating PO fluids and meals without swallowing difficulty. Denies chest pain or chest discomfort. No sign and symptoms of respiratory distress noted. No reports of GI discomfort. Stable vital signs with stable oxygen at room air. Independent with all ADL's. Steady on feet. Calm and cooperative with stable mood. Call light with in reach for safety with appropriate use of call light. Dose of IV antibiotic give as ordered with out adverse effects. Urology at bed side before noon. New orders for PO PRN and scheduled pain management and patient aware. Continue to assess left flank/back pain, vital signs, and safety.
--- NOTE | 2017-01-31 14:42 | NUR ---
Social Work- Multi-Disciplinary Rounds/Continued D/C Planning Data: EMR reviewed. Pt is on day 5 of hospitalization for pyelonephritis, hyperglycemia per H&P. Pt discussed in multi-disciplinary rounds. Pt is working to transition to PO pain medication and PO abx. ID is following pt. Possible IV abx at discharge SW met with pt at bedside regarding discharge plan, SW role explained. Pt resides in [place] with his mother and oldest brother and his brother's children. Pt was recently fired from his job at [employer] in [facility]. Pt's mother is requesting pt pay rent to her while he lives there and pt is nervous about making those rent payments since he is recently unemployed. Pt does not drive. SW provided employment and housing resources at bedside. SW confirmed with pt that from a discharge planning perspective, pt would be able to discharge home to his current living situation and fill his script. Pt would be transported home by his brother. Pt has [facility] Medicaid and fills his scripts at [facility] in [facility]. Pt's identified support person is his mother Tati Negron [phone]. Registration updated. Pt feels that his insulin management is going well, though PRIVATE WATCHMAN identified MD request for PCP follow up. If pt is here on Thursday, [facility] will schedule PCP follow up. If not, PCP contact information will be provided to pt and pt can schedule follow up. Pt agreeable to this. Due to pt's payor source and current transportation barriers, PRIVATE WATCHMAN recommends that pt be discharged on PO abx vs. IV abx. It is unlikely that pt will be able to negotiate transportation daily for infusion at [facility]. It is unknown what pt's [facility] Medicaid will cover regarding home infusion. SW will continue to follow for abx needs. Assessment: Pt who is independent at baseline. Plan: If pt is here on Thursday, UA will schedule PCP follow up. If not, PCP contact information will be provided to pt and pt can schedule follow up. Pt agreeable to this. Pt to discharge to mother's home with brother to transport via POV. Due to pt's payor source and current transportation barriers, PRIVATE WATCHMAN recommends that pt be discharged on PO abx vs. IV abx. It is unlikely that pt will be able to negotiate transportation daily for infusion at [facility]. It is unknown what pt's [facility] Medicaid will cover regarding home infusion. SW will continue to follow for abx needs. VASILE Alonzo
--- NOTE | 2017-01-31 16:36 | PCM.PNMED ---
Subjective Date of Service Jan 31, 2017 Subjective Patient reports that her pain management today. Denies any fever or chills. Tolerated his Bactrim with no adverse effects. Exam Vital Signs Vital Sign - Last Date Time Temp Pulse Resp B/P Pulse Ox O2 Delivery O2 Flow Rate FiO2 01/31/17 11:53 36.8 100 16 125/86 98 Room Air Intake and Output 01/30/17 01/30/17 01/31/17 Cumulative From/Thru 15:00 23:00 07:00 01/26/17 18:25 - 01/31/17 07:00 Intake Total 1272 ml 800 ml 65907 ml Output Total 1250 ml 1200 ml 62427 ml Balance 22 ml -400 ml 2617 ml Intake Oral 1272 ml 800 ml 6544 ml IV Total 6683 ml Output Urine Total 1250 ml 1200 ml 79671 ml # Voids 2 # Bowel Movements 0 0 Exam Gen: AOx3. Discomfort due to pain with movement. HEENT: NCAT, PERRLA, EOMI, MMM, sclera anicteric. Neck: Soft, supple, symmetrical, no thyromegaly/JVD/LAD. Resp: CTAB, no R/R/W. CV: RRR, nl S1/S2, +Murmur- Systolic. Abd: Soft, (+) BS, + L CVAT.- improved. Ext: +PP, -edema Skin: warm/dry/intact Neuro/Psych: No focal deficits, CN II-XII grossly intact. AAOx3, cooperative , appropriate mood/affect. IVs and Medications Medications Reviewed: Medications were reviewed in detail Lab and Diagnostics Result Diagram: 01/31/17 0610 01/31/17 0610 Microbiology JESSIE CULT URINE Final 01/29/17-0753 Organism 1 MIXED UROGENITAL ROSS U COLONY COUNT/QUANTITY Less than 10,000 CFU/ml LEFT PERINEPHRIC ABSCESS JESSIE GS (GRAM STAIN) Final 01/28/17-1313 GRAM STAIN RESULT MANY POLYS MODERATE GRAM POS COCCI JESSIE CULT AEROBIC Preliminary 01/29/17-09 PRELIMINARY ID STAPH, PROBABLE STAPH AUREUS SUSCEPTIBILITIES TO FOLLOW COLONY COUNT/QUANTITY HEAVY GROWTH X-Rays, CTs and MRIs PROCEDURE: CT ABDOMEN AND PELVIS WITH CONTRAST IMPRESSION: 1. Left pyelonephritis and a complex perinephric collection consistent with perinephric abscess measuring 2.4 x 5.8 x 4.2 cm. 2. Mild concentric thickening of the urinary bladder consistent with cystitis. Dictated by: Gurpreet De La Garza M.D. on 01/26/2017 at 12:32 PROCEDURE: CT ABDOMEN AND PELVIS WITH CONTRAST ([id number]) INDICATIONS: renal abscess TECHNIQUE: After the administration of intravenous contrast, 5 mm thick sections acquired from the diaphragm to the symphysis. 5 mm coronal and sagittal reformats were acquired. For radiation dose reduction, the following was used: automated exposure control, adjustment of mA and/or kV according to patient size. COMPARISON: [facility], CT, CT ASP RENAL PELVIC CYST, 01/27/2017, 13 :51. FINDINGS: Image quality: Excellent. ABDOMEN: Lung bases: Partially visualized mild/moderate left basilar pleural effusion with dense left lower lobe infiltrates.. Solid organs: Liver and spleen are normal in size and enhancement. Gallbladder is present. Biliary system is non dilated. Pancreas enhances normally. No adrenal nodules. Normal right kidney. There is a multiloculated fluid collection posterior to the left kidney which measures 3.8 x 6.7 x 9.2 CM and extends into the postero-lateral aspect of the kidney Peritoneum and bowel: Bowel loops demonstrate normal wall thickness and caliber. Patulous colon containing a moderate amount stool. No free fluid or air. The appendix is not identified. There are no secondary signs of acute appendicitis. Nodes and vessels: No retroperitoneal or mesenteric adenopathy by size criteria. Aorta and inferior vena cava are normal in size. Miscellaneous: No ventral hernias. PELVIS: Genitourinary: Bladder wall thickness is normal. Miscellaneous: No inguinal hernias or adenopathy. New small amount of pelvic ascites. Bones: No suspicious bony lesions. No vertebral body compression fractures. IMPRESSION: 1. Multiloculated left perinephric abscess only minimally changed given differences in technique. Please note, the number of internal septations will preclude effective percutaneous drainage of this abscess. 2. New small left pleural effusion with dense left basilar consolidation which may represent pneumonia or aspiration. Simple atelectasis is possible but less likely. 3. New pelvic ascites. Cardiac Echo Impressions Echocardiogram Report Name: LESA SANDERS GStudy Bandar e: 01/29/2017 Height: 72 in Hospital Exam Location: [facility] Weight: 135 lb Gender: Male BSA: 1.8 m2 : 1985 Age: 31 yrs BP: 137/92 mmHg Reason For Study: STAPH ABSCESS Ordering Physician: Performed By: Castro Aldridge Referring Physician: Dr. Yuniel Britt Interpretation Summary The left ventricle is normal in size, wall thickness, and systolic function without any focal wall motion abnormalities. The ejection fraction is estimated to be 60-65%. The right ventricle is normal in size and function. Pulmonary artery pressures cannot be estimated because of the lack of a measurable TR jet velocity. Both atria are normal in size. The aortic valve is bicuspid. The peak aortic velocity is 2.8 m/sec. The aortic valve mean gradient is 18.3 mmHg. The calculated aortic valve area is 1.4 cm2. There is mild to moderate aortic stenosis. There is mild aortic regurgitation. There is no other significant valvular heart disease. The ascending aorta is mildly enlarged. No obvious findings that would suggest endocardit Assessment & Plan 31yo male with past medical history of tobacco dependence, depression, and diabetes admitted with sepsis secondary to a perinephric abscess. #Sepsis, acute, POA and improving -Patient presented with WBC>12, HR>90 on admission. WBC downtrending. -secondary perinephric abscess -treatment as below. #Perinephric abscess, POA and improving -CT scan with complex abscess as above -Urology consulted and recommended a percutaneous drainage by IR. Patient underwent a percutaneous aspirate of the perinephric abscess and 6cc of purulent fluid was drained on 01/27/17. Because of the multiloculated nature of it that was not felt to be amenable to leaving the drain in place for drainage by IR and so the aspirate was done and the needle was removed. Will consider repeating the CT scan tomorrow to monitor for changes. - Aspirated fluid from abscess was sent for gram stain and culture>+Staph Aureus - culture abscess despite Neg Nasal MRSA Screen. -pain management with hydromorphone Q2H PRN and Oxycodone 5-10mg PO Q4H. Patient reports severe reaction to codeine, but will continue to monitor his symptoms on the Oxycodone, Attempt to transition to PO pain medications -Continue IVF. -Echo showed no evidence of Endocarditis. -ID following- Appreciate Dr. Pulido's input. Vancomycin and Cefepime switch the cefepime to cefazolin in maximal doses, follow susceptibility. - Cx shows MSSA. ID changed to Ceftriaxone. Has severe allergy so Penicillin or cephalosporin desensitization may be indicated early next week. Pt changed to Bactrim and has tolerated well, can be discharged on Bactrim. - Will need to make ID Follow up this week with Dr. Pulido, preferably ThuFebruary 04. . -Urology following, Dr. Staton. - repeat CT of the abdomen showed Multiloculated left perinephric abscess only minimally changed. - Increased Dilaudid to 2mg IV q2h prn. - Upon discharge patient's medications were changed from IV Dilaudid to PO Oxycontin 10 mg BID, Dilaudid 2-4 mg q4h PO PRN for breakthrough pain #Diabetes Type 2, chronic, POA and uncontrolled. -medium regular correction SSI -Lantus dose was reduced to 15 units due to NPO yesterday. Will resume home dose of Lantus 38qHS today. -Fingersticks well controlled today. - Upon discharge will need to ensure compliant with treatment and diabetic follow up appts w/ PCP as likely non-compliant given Hba1c >14% in past. #Depression, POA. -continue home medication Patient was admitted for >2 midnights under inpatient status due to severity and complexity of illness Full resuscitation Pain Evaluation: Adequate Pain Control GI Prophylaxis: Not indicated VTE Prophylaxis: Sub-Q Heparin (Unfractionated), SCDs (SCDs until after procedure then transition to heparin subq for DVT prophylaxis) VTE Mechanical Devices: Intermittant Pneumatic CD Resuscitation Status: CPR: Attempt Resuscitation Time spent 45 minutes Carlos Steinberg MD Jan 31, 2017 16:35
--- NOTE | 2017-01-31 16:49 | PCM.DIMED ---
Discharge Instructions Date of Service Jan 31, 2017 Dates of Hospitalization Jan 26, 2017 at 21:47 Discharge Diagnosis Discharge Diagnosis #Sepsis #Perinephric abscess #Diabetes Type 2,uncontrolled. #Depression, Medication Instructions Additional med instructions - PO Oxycontin 10 mg BID, Dilaudid 2-4 mg q4h PO PRN for breakthrough pain - Take Bactrim daily. Length of treatment will be decided during follow up with Dr. Pulido this week. Diet Discharge Diet: Diabetic Activity Discharge Activity: No restrictions Call your provider Call your provider for: Fever or Chills, Shortness of breath, Chest pain, Vomitting Patient Instructions Patient Instructions Please take your Diabetes medications and check daily blood sugars with meals. Keep record and bring to your next office visit with your primary doctor. Follow-up plan - Will need to make Infectious Disease Follow up this week with Dr. Pulido, preferably ThuFebruary 04. Message left with their office but please call if you don't hear from them. Office # [phone] Follow-up Provider: Cullen Britt DO Follow-up with PCP in: 2 weeks Provider: Marjorie Staton MD Follow-up in: 1 week Carlos Steinberg MD Jan 31, 2017 16:48
[2017-01-31] MEDS ORDERED: INSU100I18 SUBQ (16:52)
[2017-01-31] MEDS ORDERED: HYDR2TAB27 PO (16:52)
[2017-01-31] MEDS ORDERED: SULF1TAB35 PO (16:52)
[2017-01-31] MEDS ORDERED: OXYC10TA69 PO (16:52)
[2017-01-31] MEDS ORDERED: INSU100V7 SUBQ (16:52)
--- NOTE | 2017-01-31 16:53 | PCM.DC.MED ---
Discharge Summary Date of Service Jan 31, 2017 Dates of Hospitalization Date of Hospital Admission Jan 26, 2017 at 21:47 Date of Discharge: Jan 31, 2017 Providers: Admitting Physician: Ericka Serrano DO Primary Care Physician: Cullen Britt DO Attending Physician: Shawn Tena MD Diagnosis at Time of Discharge Diagnosis at Time of Discharge #Sepsis #Perinephric abscess #Diabetes Type 2,uncontrolled. #Depression, Procedures XRay, CTs & MRIs PROCEDURE: CT ABDOMEN AND PELVIS WITH CONTRAST IMPRESSION: 1. Left pyelonephritis and a complex perinephric collection consistent with perinephric abscess measuring 2.4 x 5.8 x 4.2 cm. 2. Mild concentric thickening of the urinary bladder consistent with cystitis. Dictated by: Gurpreet De La Garza M.D. on 01/26/2017 at 12:32 PROCEDURE: CT ABDOMEN AND PELVIS WITH CONTRAST ([id number]) INDICATIONS: renal abscess TECHNIQUE: After the administration of intravenous contrast, 5 mm thick sections acquired from the diaphragm to the symphysis. 5 mm coronal and sagittal reformats were acquired. For radiation dose reduction, the following was used: automated exposure control, adjustment of mA and/or kV according to patient size. COMPARISON: [facility], CT, CT ASP RENAL PELVIC CYST, 01/27/2017, 13 :51. FINDINGS: Image quality: Excellent. ABDOMEN: Lung bases: Partially visualized mild/moderate left basilar pleural effusion with dense left lower lobe infiltrates.. Solid organs: Liver and spleen are normal in size and enhancement. Gallbladder is present. Biliary system is non dilated. Pancreas enhances normally. No adrenal nodules. Normal right kidney. There is a multiloculated fluid collection posterior to the left kidney which measures 3.8 x 6.7 x 9.2 CM and extends into the postero-lateral aspect of the kidney Peritoneum and bowel: Bowel loops demonstrate normal wall thickness and caliber. Patulous colon containing a moderate amount stool. No free fluid or air. The appendix is not identified. There are no secondary signs of acute appendicitis. Nodes and vessels: No retroperitoneal or mesenteric adenopathy by size criteria. Aorta and inferior vena cava are normal in size. Miscellaneous: No ventral hernias. PELVIS: Genitourinary: Bladder wall thickness is normal. Miscellaneous: No inguinal hernias or adenopathy. New small amount of pelvic ascites. Bones: No suspicious bony lesions. No vertebral body compression fractures. IMPRESSION: 1. Multiloculated left perinephric abscess only minimally changed given differences in technique. Please note, the number of internal septations will preclude effective percutaneous drainage of this abscess. 2. New small left pleural effusion with dense left basilar consolidation which may represent pneumonia or aspiration. Simple atelectasis is possible but less likely. 3. New pelvic ascites. Cardiac Echo Impression Echocardiogram Report Name: LESA SANDERS Bandar e: 01/29/2017 Height: 72 in Hospital Exam Location: [facility] Weight: 135 lb Gender: Male BSA: 1.8 m2 : 1985 Age: 31 yrs BP: 137/92 mmHg Reason For Study: STAPH ABSCESS Ordering Physician: Performed By: Castro Aldrideg Referring Physician: Dr. Yuniel Britt Interpretation Summary The left ventricle is normal in size, wall thickness, and systolic function without any focal wall motion abnormalities. The ejection fraction is estimated to be 60-65%. The right ventricle is normal in size and function. Pulmonary artery pressures cannot be estimated because of the lack of a measurable TR jet velocity. Both atria are normal in size. The aortic valve is bicuspid. The peak aortic velocity is 2.8 m/sec. The aortic valve mean gradient is 18.3 mmHg. The calculated aortic valve area is 1.4 cm2. There is mild to moderate aortic stenosis. There is mild aortic regurgitation. There is no other significant valvular heart disease. The ascending aorta is mildly enlarged. No obvious findings that would suggest endocardit Brief History Pt is a 31 y/o insulin dependent diabetic gentleman admitted 01/26/17 with large Left perinephric abscess. He had been to [facility] 01/20 with c/o L flank/abdominal pain, CT then showed much more subtle findings which were not noted at the time, urine culture was not sent. He was referred for urology for his back pain, CT done outpatient 01/26 led to findings and pt returned to ER at [facility] where he was admitted. Findings included L sided renal and perinephric abscess complex that was large 2.,4 x 5.8 x 4.2 and Loculated in appearance. There is No hydronephosis on this side. Contralateral kidney is orthotopic and normal in appearance. Urinary bladder with some symmetric wall thickening c/w cystitis. Pt with increasing L back/abdominal pain and WBC o 16.3 at admit, 19.1 several hours after admision, normal Lactic Acid with HR in the 80s-100s, normotensive with markedly elevated blood glucose at admission. He remained afebrile and uncomforable, clinically tomy since admission. He has been seen by Dr Pulido with ID and was empirically placed on Vancomycin and Cefotetan. Hospital Course 31yo male with past medical history of tobacco dependence, depression, and diabetes admitted with sepsis secondary to a perinephric abscess. #Sepsis, acute, POA and improving -Patient presented with WBC>12, HR>90 on admission. WBC downtrending. -secondary perinephric abscess -treatment as below. #Perinephric abscess, POA and improving -CT scan with complex abscess as above -Urology consulted and recommended a percutaneous drainage by IR. Patient underwent a percutaneous aspirate of the perinephric abscess and 6cc of purulent fluid was drained on 01/27/17. Because of the multiloculated nature of it that was not felt to be amenable to leaving the drain in place for drainage by IR and so the aspirate was done and the needle was removed. Will consider repeating the CT scan tomorrow to monitor for changes. - Aspirated fluid from abscess was sent for gram stain and culture>+Staph Aureus - culture abscess despite Neg Nasal MRSA Screen. -pain management with hydromorphone Q2H PRN and Oxycodone 5-10mg PO Q4H. Patient reports severe reaction to codeine, but will continue to monitor his symptoms on the Oxycodone, Attempt to transition to PO pain medications -Continue IVF. -Echo showed no evidence of Endocarditis. -ID following- Appreciate Dr. Pulido's input. Vancomycin and Cefepime switch the cefepime to cefazolin in maximal doses, follow susceptibility. - Cx shows MSSA. ID changed to Ceftriaxone. Has severe allergy so Penicillin or cephalosporin desensitization may be indicated early next week. Pt changed to Bactrim and has tolerated well, can be discharged on Bactrim. - Will need to make ID Follow up this week with Dr. Pulido, preferably ThuFebruary 04. . -Urology following, Dr. Staton. - repeat CT of the abdomen showed Multiloculated left perinephric abscess only minimally changed. - Increased Dilaudid to 2mg IV q2h prn. - Upon discharge patient's medications were changed from IV Dilaudid to PO Oxycontin 10 mg BID, Dilaudid 2-4 mg q4h PO PRN for breakthrough pain #Diabetes Type 2, chronic, POA and uncontrolled. -medium regular correction SSI -Lantus dose was reduced to 15 units due to NPO yesterday. Will resume home dose of Lantus 38qHS today. -Fingersticks well controlled today. - Upon discharge will need to ensure compliant with treatment and diabetic follow up appts w/ PCP as likely non-compliant given Hba1c >14% in past. #Depression, POA. -continue home medication Patient was admitted for >2 midnights under inpatient status due to severity and complexity of illness Full resuscitation Exam Vital Signs (Last) Date Time Temp Pulse Resp B/P Pulse Ox O2 Delivery O2 Flow Rate FiO2 01/31/17 11:53 36.8 100 16 125/86 98 Room Air Test 01/26/17 19:17 01/26/17 23:31 01/27/17 11:21 01/28/17 07:15 Lactic Acid Level 1.0mmol/L (0.4-2.0) Hold Walls Top Tube Received (Received) Urine Color Yellow (YELLOW) Urine Appearance Clear (CLEAR,HAZY) Urine pH 5.5 (5.0-8.0) Urine Specific [place] 1.025 (1.003-1.035) Urine Protein 100mg/dL (NEG,TRACE) Urine Glucose (UA) 250mg/dL (NEGATIVE) Urine Ketones 40mg/dL (NEGATIVE) Urine Occult Blood Large (NEGATIVE) Urine Nitrite Negative (NEGATIVE) Urine Bilirubin Negative (NEGATIVE) Urine Urobilinogen Normalmg/dL (NORMAL) Urine Leukocyte Esterase Negative (NEGATIVE) Urine RBC 11-50/hpf (0-2) Urine WBC 11-50/hpf (0-5) Urine Epithelial Cells Occasional/hpf (NONE-MOD) Urine Crystals None seen (NONE SEEN) Urine Bacteria Few/hpf (NONE-FEW) Urine Hyaline Casts Occasional/lpf (NONE) Urine Granular Casts None seen (NONE SEEN) Urine Waxy Casts None seen (NONE SEEN) Urine Red Blood Cell Casts None seen (NONE SEEN) Urine White Blood Cell Casts None seen (NONE SEEN) Urine Mucus None seen (None Seen) Urine Trichomonas None seen (NONE SEEN) Urine Yeast None (NONE SEEN) Urinalysis Comment None Urine Culture Reflexed Indicated Urine Opiates Screen Negative Urine Methadone Screen Negative Urine Barbiturates Screen Negative Urine Amphetamines Screen Negative Urine Benzodiazepines Screen Negative Urine Cocaine Metabolite Screen Negative Urine Cannabinoids Screen Positive Prothrombin Time 11.1sec (8.1-12.5) Prothromb Time International Ratio 1.04ratio Activated Partial Thromboplast Time 27.8sec (22.8-33.0) Hemoglobin A1c 12.8% (4.8-5.6) Test 01/29/17 05:20 01/31/17 06:10 Vancomycin Level Trough 19.6mcg/mL White Blood Count 10.4th/mm3 (3.8-10.1) Red Blood Count 3.99mil/mm3 (4.40-5.80) Hemoglobin 10.8g/dL (13.8-17.2) Hematocrit 33.6% (41.0-50.0) Mean Corpuscular Volume 84.2fL (81-100) Mean Corpuscular Hemoglobin 27.1pg (27.0-35.0) Mean Corpuscular Hemoglobin Concent 32.1% (32.0-37.0) Red Cell Distribution Width 14.4% (12.3-15.4) Platelet Count 446bil/L (150-400) Neutrophils (%) (Auto) 81.1% (40-74) Lymphocytes (%) (Auto) 7.6% (14-46) Monocytes (%) (Auto) 10.0% (4-12) Eosinophils (%) (Auto) 0.8% (0-5) Basophils (%) (Auto) 0.2% (0-3) Sodium Level 139mEq/L (134-144) Potassium Level 3.8mEq/L (3.5-5.2) Chloride Level 95mEq/L (97-108) Carbon Dioxide Level 29mmol/L (18-29) Blood Urea Nitrogen 7mg/dL (6-20) Creatinine 0.48mg/dL (0.76-1.27) Estimat Glomerular Filtration Rate 216mL/min (>59) Glucose Level 57mg/dL (60-99) Calcium Level 9.0mg/dL (8.5-10.1) Total Bilirubin < 0.2mg/dL (0.0-1.2) Direct Bilirubin < 0.2mg/dL (0.0-0.3) Aspartate Amino Transf (AST/SGOT) 12U/L (0-50) Alanine Aminotransferase (ALT/SGPT) 7U/L (0-44) Alkaline Phosphatase 96U/L (25-150) Total Protein 5.9g/dL (6.4-8.4) Albumin 2.6g/dL (3.4-5.0) Microbiology Results JESSIE CULT URINE Final 01/29/17-0753 Organism 1 MIXED UROGENITAL ROSS U COLONY COUNT/QUANTITY Less than 10,000 CFU/ml LEFT PERINEPHRIC ABSCESS JESSIE GS (GRAM STAIN) Final 01/28/17-131 GRAM STAIN RESULT MANY POLYS MODERATE GRAM POS COCCI JESSIE CULT AEROBIC Preliminary 01/29/17-09 PRELIMINARY ID STAPH, PROBABLE STAPH AUREUS SUSCEPTIBILITIES TO FOLLOW COLONY COUNT/QUANTITY HEAVY GROWTH Discharge Medications Discharge Medications Insulin Glargine (Lantus U100 Insulin Vial) 100 Unit/Ml Vial 38 UNIT SUBQ HS Prescribed by: SHAWN TENA MD Insulin Lispro (HumaLOG U100 Insulin Pen) 100 Unit/1 Ml Insuln.pen 1 UNIT SUBQ TIDAC Prescribed by: SHAWN TENA MD Oxycodone ER (Oxycontin) 10 Mg Tab.er.12h 10 MG PO BID Prescribed by: SHAWN TENA MD Sertraline HCl (Zoloft) 50 Mg Tablet 75 MG PO DAILY (Reported) Sulfamethoxazole/Trimeth 800-160 mg (Bactrim DS 800-160 mg) 1 Each Tablet 2 TABLET PO BID Prescribed by: SHAWN TENA MD As needed Acetaminophen (Acetaminophen) 325 Mg Tablet 500 MG PO Q4H PRN PRN For Fever ( Reported) Calcium Carbonate (Tums) 500 Mg Tab.chew 500-1,000 MG PO PRN PRN PRN heartburn ( Reported) Hydromorphone (Dilaudid) 2 Mg Tablet 2-4 MG PO Q4H PRN PRN For Pain Prescribed by: SHAWN TENA MD Additional med instructions - PO Oxycontin 10 mg BID, Dilaudid 2-4 mg q4h PO PRN for breakthrough pain - Take Bactrim daily. Length of treatment will be decided during follow up with Dr. Pulido this week. Followup Plan Follow-up plan - Will need to make Infectious Disease Follow up this week with Dr. Pulido, preferably ThuFebruary 04. Message left with their office but please call if you don't hear from them. Office # [phone] Discharge Diet: Diabetic Discharge Activity: No restrictions Patient Instructions Please take your Diabetes medications and check daily blood sugars with meals. Keep record and bring to your next office visit with your primary doctor. Follow-up Provider: Cullen Britt DO Follow-up with PCP in: 2 weeks Provider: Marjorie Staton MD Follow-up in: 1 week Shawn Tena MD Jan 31, 2017 16:53
--- NOTE | 2017-01-31 17:40 | NUR ---
Discharge New orders for discharge home. Patient left unit approx 1732 after calling for ride. Reviewed discharge paper work, discharge instructions, new and updated prescriptions, follow up appointments with phone numbers to call and understood discharge instructions, signed discharge paper work. Pheripheral IV discontinued with out difficulty. No reports of pain or discomfort prior to discharge.
[2017-01-31] MEDS ORDERED: oxyCODONE ER 10 mg ER12 Tablet PO SCH (20:30)
[2017-01-31] MEDS ORDERED: Senna-Docusate 8.6-50 mg Tablet PO SCH (21:00)
[2017-02-01] MEDS ORDERED: SULF1TAB35 PO (12:15)
[2017-02-01] MEDS ORDERED: OXYC10TA69 PO (12:15)
[2017-02-01] MEDS ORDERED: DIL4T PO (12:16)
== END 2017-01-31 17:30 | disposition home or self-care (01) | DRG 871 ==
LOC: SED 18:18 → PCC 21:47 → OSC 01-28 17:17
PROVIDERS: ADMIT Internal Medicine; ATTEND Internal Medicine
PROC: 0T913ZX Drainage of Left Kidney, Percutaneous Approach, Diagnostic (ICD-10-PCS; principal; 2017-01-27)
DX: A41.9 Sepsis, unspecified organism (principal); N15.1 Renal and perinephric abscess; E11.65 Type 2 diabetes mellitus with hyperglycemia; F32.9 Major depressive disorder, single episode, unspecified; Z79.4 Long term (current) use of insulin; B95.61 Methicillin susceptible Staphylococcus aureus infection as the cause of diseases classified elsewhere

== ENCOUNTER 2017-02-11 15:36 | Emergency (ER) | payer MEDICAID ==
[~2017-02-11] VITALS: Ht 182.9 cm; Wt 58.2 kg
[2017-02-11] VITALS (9 sets, daily range): BP systolic 99–121; BP diastolic 62–80; PULSE 78–92; RESP 11–20; O2SAT 98–100
[~2017-02-11 15:36] MED LIST: ACET325T51 PO; CALC500T9 PO; DIL4T PO; INSU100I18 SUBQ; INSU100V7 SUBQ; OXYC10TA69 PO; SERT50TA PO; SULF1TAB35 PO
--- NOTE | 2017-02-11 16:06 | ED.REPORT ---
HPI-Abd Pain M Under 40 Date of Service Feb 11, 2017 ED Provider: Miah Nicole MD A 31 year old male with a history of type I diabetes, kidney infection and developmental delay is referred to the ED from urology complaining of left- sided flank pain. He describes this pain as a "pressure" that has been present for some time. He is being treated for this as an outpatient and was seen by urology today but referred to the ED for further evaluation. The pt denies fever or vomiting. Nursing Notes Stated Complaint: KIDNEY PAIN Chief Complaint: Male Abdominal Pain Nursing Notes Reviewed: Yes Allergies: Coded Allergies: codeine (Verified Allergy, Severe, 01/26/17) Penicillins (Verified Allergy, Mild, THROAT EDEMA, 01/26/17) Scheduled Insulin Glargine (Lantus U100 Insulin Vial) 100 Unit/Ml Vial 38 UNIT SUBQ HS Insulin Lispro (HumaLOG U100 Insulin Pen) 100 Unit/1 Ml Insuln.pen 1 UNIT SUBQ TIDAC Oxycodone ER (Oxycontin) 10 Mg Tab.er.12h 10 MG PO BID Sertraline HCl (Zoloft) 50 Mg Tablet 75 MG PO DAILY Sulfamethoxazole/Trimeth 800-160 mg (Bactrim DS 800-160 mg) 1 Each Tablet 1 TABLET PO BID Scheduled PRN Acetaminophen (Acetaminophen) 325 Mg Tablet 500 MG PO Q4H PRN PRN For Fever Calcium Carbonate (Tums) 500 Mg Tab.chew 500-1,000 MG PO PRN PRN PRN heartburn Hydromorphone (Dilaudid) 4 Mg Tablet 4 MG PO Q4H PRN PRN Pain General Time Seen by MD: 16:06 Chief Complaint Flank pain left Hx Obtained From: Patient Arrived By: Walk-in Sudden in Onset?: No Symptom Duration: Since onset Recent Healthcare: Recent doctor visit, Recent hospitalization Past Medical History Past Medical History 1. Diabetes mellitus type I (previous DKA admissions x5) 2. Cleft lip and palate surgery (x3) 3. Dental malocclusion 4. Bilateral laryngotomy for chronic ear infections 5. Developmental delay 6. Kidney infection Past Surgical History Palate surgery (x3) Bilateral laryngotomy for chronic ear infections Smoking History Current Every Day Smoker Social History Other Social History: Good social support, Local resident Ambulatory Status Independent Review of Systems Constitutional: Denies: Fever Respiratory: Denies: Non-productive cough, Shortness of breath Cardiovascular: Denies: Chest pain GI: Denies: Vomiting Male: Reports Flank pain Musculoskeletal: Denies: Neck pain Complete sys rev & neg: except as marked. Physical Exam Initial Vital Signs Vital Signs (First) Date Time Temp Pulse Resp B/P Pulse Ox O2 Delivery O2 Flow Rate FiO2 02/11/17 15:39 36.8 92 18 115/80 99 Room Air Initial VS: Reviewed General/Constitutional: Awake, Alert Respiratory / Chest: Atraumatic, Breath sounds NL, Breath sounds = bilat, No respiratory distress Cardiovascular: Heart rate NL, Regular rhythm 3/6 soft systolic murmur Abdomen: Atraumatic, Soft, Non-tender, BS normoactive Back: Atraumatic, Full range of motion Head / Eyes: Atraumatic, Normocephalic, PERRL, EOMI ENT: Atraumatic, Airway patent, Mucous membranes moist Neurologic: Oriented X3, Speech NL, No motor deficits, No sensory deficits Neck: Atraumatic, Supple, Full range of motion Upper Extremity / MS: Atraumatic, Full range of motion Lower Extremity / Pelvis / MS: Atraumatic, Full range of motion Skin: Atraumatic, Color NL, No rash, Warm, Dry Psychiatric: Affect NL, Mood NL Interpretation & Diagnostics Lab Results Interpretation Result Diagram: 02/11/17 1615 02/11/17 1615 Test 02/11/17 16:15 02/11/17 16:56 White Blood Count 5.8th/mm3 (3.8-10.1) Red Blood Count 4.53mil/mm3 (4.40-5.80) Hemoglobin 12.3g/dL (13.8-17.2) Hematocrit 37.4% (41.0-50.0) Mean Corpuscular Volume 82.6fL (81-100) Mean Corpuscular Hemoglobin 27.2pg (27.0-35.0) Mean Corpuscular Hemoglobin Concent 32.9% (32.0-37.0) Red Cell Distribution Width 14.5% (12.3-15.4) Platelet Count 619bil/L (150-400) Neutrophils (%) (Auto) 70.5% (40-74) Lymphocytes (%) (Auto) 21.3% (14-46) Monocytes (%) (Auto) 5.8% (4-12) Eosinophils (%) (Auto) 0.7% (0-5) Basophils (%) (Auto) 1.2% (0-3) Hold Purple Top Tube Received (Received) Hold Blue Top Tube Received (Received) Sodium Level 128mEq/L (134-144) Potassium Level 4.4mEq/L (3.5-5.2) Chloride Level 87mEq/L (97-108) Carbon Dioxide Level 24mmol/L (18-29) Blood Urea Nitrogen 18mg/dL (6-20) Creatinine 0.73mg/dL (0.76-1.27) Estimat Glomerular Filtration Rate 133mL/min (>59) Glucose Level 556mg/dL (60-99) Calcium Level 9.2mg/dL (8.5-10.1) Magnesium Level 1.8mg/dL (1.6-2.6) Total Bilirubin 0.2mg/dL (0.0-1.2) Aspartate Amino Transf (AST/SGOT) 12U/L (0-50) Alanine Aminotransferase (ALT/SGPT) 10U/L (0-44) Alkaline Phosphatase 82U/L (25-150) Total Protein 7.8g/dL (6.4-8.4) Albumin 3.2g/dL (3.4-5.0) Lipase 16U/L (13-60) Hold [place] Top Tube Received (Received) Hold Walls Top Tube Received (Received) Urine Color Straw (YELLOW) Urine Appearance Clear (CLEAR,HAZY) Urine pH 7.0 (5.0-8.0) Urine Specific [place] 1.010 (1.003-1.035) Urine Protein Negativemg/dL (NEG,TRACE) Urine Glucose (UA) 1000mg/dL (NEGATIVE) Urine Ketones Negativemg/dL (NEGATIVE) Urine Occult Blood Moderate (NEGATIVE) Urine Nitrite Negative (NEGATIVE) Urine Bilirubin Negative (NEGATIVE) Urine Urobilinogen Normalmg/dL (NORMAL) Urine Leukocyte Esterase Negative (NEGATIVE) Urine RBC 3-10/hpf (0-2) Urine WBC 0-5/hpf (0-5) Urine Epithelial Cells None/hpf (NONE-MOD) Urine Crystals None seen (NONE SEEN) Urine Bacteria None/hpf (NONE-FEW) Urine Hyaline Casts None/lpf (NONE) Urine Granular Casts None seen (NONE SEEN) Urine Waxy Casts None seen (NONE SEEN) Urine Red Blood Cell Casts None seen (NONE SEEN) Urine White Blood Cell Casts None seen (NONE SEEN) Urine Mucus None seen (None Seen) Urine Trichomonas None seen (NONE SEEN) Urine Yeast None (NONE SEEN) Urinalysis Comment None Urine Culture Reflexed Not indicated CT Abd / Pelvis Interpretation IMPRESSION: 1. The kidney defect consistent with focal infection has decreased in size. 2. The complex abnormality posterior to the kidney thought to be abscess has significantly decreased in size as described. 3. A left pleural effusion seen previously has resolved. 4. Small ascites seen previously has decreased in size. 5. No other abnormality is seen in the CT scan of the abdomen and pelvis this patient with known perinephric abscess. Dictated by: Dimas Sharma M.D. on 02/11/2017 at 17:43 Dr. Nicole is aware of these findings. Approved by: Dimas Sharma M.D. on 02/11/2017 at 17:54 Interpretation / Wet Read by: Interpret - Radiologist Re-Eval/Medical Decision Med Decision/Clinical Course 31-year-old male type I diabetic with persistent left flank pain after hospitalization for a left perinephric abscess with percutaneous drainage. He is on oral antibiotics at present not having fevers and other than elevated glucose's evaluation in terms of imaging labs and exam are reassuring. His blood sugar improved with IV fluids and insulin. He has follow-up in place with urology and primary care and has appropriate pain and anti-inflammatory medication. He is reassured and discharged home. Glucose prior to discharge is 231 Source of Hx: Old records Re-Evaluation/Progress : Time of Eval: 20:15 Patient Status: Condition improved Re-Evaluation/Progress Note: Pt rechecked, who is comfortable. Radiology results are discussed. The diagnosis and plan for discharge are discussed. The pt understands and agrees with the plan. All questions are addressed at this time. Consultation : Referral / Consult Name: Tamica Garrett MD Call Returned at: 16:21 Note: Consulted with Dr. Garrett, solution lead for urology, regarding pt's case. Dr. Garrett agrees with the evaluation and plan. Counseled Regarding: Diagnosis, Lab results, Need for follow-up, When/why to return to ED Patient Discharge & Departure Primary Impression: Left flank pain Additional Impression: Diabetes type 1, uncontrolled Disposition: Home Discharge Condition All VS Reviewed: Yes Condition: Stable Additional Instructions: Emergency department evaluation today included interview, examination labs review of past records and CT of abdomen and pelvis. Evaluation is reassuring, imaging shows improvement in left perinephric abscess labs do not show signs of infection although blood sugar is elevated this improved with fluids and insulin. Continue home medications including trimethoprim sulfa and morphine as needed for pain. Use insulin as directed including sliding scale and follow the diabetic diet. Get adequate fluids. Follow-up with primary care as scheduled. Return to emergency department for fevers shaking chills frequent vomiting increasing pain. Referrals: Cullen Britt DO (PCP) Leif Castañeda MD (Family) Marjorie Staton MD Attestation Portions of this note were transcribed by Abhinav Singh. I, Dr. Nicole personally performed the history, physical exam and medical decision-making; I reviewed and confirmed the accuracy of the information in the transcribed note. Signed by: Natalia Paige, 02/11/2017 and 2024. copies to: Cullen Britt DO; Marjorie Staton MD, Donald L MD Feb 11, 2017 16:06 ABHINAV SINGH Feb 11, 2017 16:15
[2017-02-11] MEDS ORDERED: 0.9% Sodium Chloride 1,000 ML IV ONE (16:26)
[2017-02-11 16:57] LABS: BASOPHILS % (AUTO) 1.2 % (0-3); EOSINOPHILS % (AUTO) 0.7 % (0-5); MONOCYTES % (AUTO) 5.8 % (4-12); Mean Corpuscular Hemoglobin 27.2 pg (27.0-35.0); Mean Corpuscular Volume 82.6 fL (81-100); NEUTROPHILS % (AUTO) 70.5 % (40-74); Platelet Count 619 bil/L (150-400)
[2017-02-11 17:01] LABS: Magnesium 1.8 mg/dL (1.6-2.6)
[2017-02-11 17:02] LABS: APPEARANCE,URINE CLEAR (CLEAR,HAZY); COLOR,URINE STRAW (YELLOW)
[2017-02-11 17:03] LABS: OCCULT BLOOD,URINE MODERATE (NEGATIVE); UROBILINOGEN,URINE NORMAL (NORMAL)
--- NOTE | 2017-02-11 17:56 | DRSVH ---
PROCEDURE: CT ABDOMEN AND PELVIS WITH CONTRAST ([id number]) INDICATIONS: L flank pain, perinephric abscess TECHNIQUE: After the administration of intravenous contrast, 5 mm thick sections acquired from the diaphragm to the symphysis. 5 mm coronal and sagittal reformats were acquired. For radiation dose reduction, the following was used: automated exposure control, adjustment of mA and/or kV according to patient drew coleman. COMPARISON: [facility], CT, CT ABD PELVIS W CON, 01/30/2017, 11:33. FINDINGS: Image quality: Good ABDOMEN: Lung bases: Lung bases are clear. Previous left pleural effusion has resolved Heart size is normal. Solid organs: Liver and spleen are normal in size and enhancement. Gallbladder is within normal garduno its. Biliary system is non dilated. Pancreas enhances normally. No adrenal nodules. Right kidney d emonstrates normal size and enhancement, without hydronephrosis. Left kidney shows normal enhancemen t without obstruction except an area seen previously postero-laterally at mid pole there is loss of c orticomedullary junction however this has decreased in size indicating improvement in what is thought to be renal infection.. Posterior to the left kidney is abnormal heterogeneous area of enhancement. Corresponds to the area seen previously is significantly reduced in size. The irregular fluid collect ion central and this previously measured 2.9 x 3.9 x 6.7 cm measures 0.6 x 1.7 x 2.7 cm. Peritoneum and bowel: Bowel loops demonstrate normal wall thickness and caliber. No free air. Prev iously seen pelvic ascites has decreased in size. Nodes and vessels: No retroperitoneal or mesenteric adenopathy by size criteria. Aorta and inferior vena cava are normal in size. Miscellaneous: No ventral hernias. PELVIS: Genitourinary: Bladder wall thickness is normal. Miscellaneous: No inguinal hernias or adenopathy. Bones: No suspicious bony lesions. No vertebral body compression fractures. IMPRESSION: 1. The kidney defect consistent with focal infection has decreased in size. 2. The complex abnormality posterior to the kidney thought to be abscess has significantly decreased in size as described. 3. A left pleural effusion seen previously has resolved. 4. Small ascites seen previously has decreased in size. 5. No other abnormality is seen in the CT scan of the abdomen and pelvis this patient with known lisa nephric abscess. Dictated by: Dimas Sharma M.D. on 02/11/2017 at 17:43 Dr. Nicole is aware of these findings. Approved by: Dimas Sharma M.D. on 02/11/2017 at 17:54
[2017-02-11] MEDS ORDERED: Insulin Human REGular-Omnicell 100 Unit/mL SUBQ ONE (18:25)
== END 2017-02-11 20:38 | disposition home or self-care (01) ==
LOC: SED 15:36
DX: R10.9 Unspecified abdominal pain (principal); E10.10 Type 1 diabetes mellitus with ketoacidosis without coma; F17.200 Nicotine dependence, unspecified, uncomplicated; Z88.0 Allergy status to penicillin; Z88.5 Allergy status to narcotic agent; Z79.4 Long term (current) use of insulin
CPT/HCPCS: 36415; 74177; 80053; 81000; 82948; 83690; 83735; 85025; 87040; 96360; 99285; J7030; Q9967